=== PATIENT | female | born 1970 | race Caucasian/White ===

== ENCOUNTER 2022-04-28 09:52 | Observation (INO) ==
[2022-04-28] MEDS ORDERED: SODIUM CHLORIDE 0.9% 1000ML 1,000 ML IV SCH (10:15)
--- NOTE | 2022-04-28 10:38 | Emergency Department Note ---
Impression & Plan Atrial fibrillation with rapid ventricular response, SOB (shortness of breath), Dizziness, Chest tightness ED Provider Note NAME: STACIE HODGES AGE: 51 SEX: F : 1970 ARRIVES VIA: Walk-In INFORMANT: [Patient] ED PROVIDER(S): [Star Truong MD] CHIEF COMPLAINT: Cardiac assessment HISTORY OF PRESENT ILLNESS: The patient is a 51-year-old female who states that about 5 hours ago, she felt her heart racing and some pressure across the chest. She would be short of breath with any exertion. At work today, she felt dizzy and lightheaded with some numbness in her lips and fingers with any type of activity. There has been no fever, no cough or congestion. She has no history of A-fib, SVT or a flutter, no coronary history. She states her mom was recently diagnosed with atrial fibrillation though. Of note, the patient does take metoprolol succinate, she took 50 mg this morning. PMHx/PSHx: See Below SOCIAL HISTORY: See Below. PHYSICAL EXAM: GENERAL: Patient is in no acute distress. HEENT: No acute trauma, normocephalic atraumatic, mucous membranes moist, no nasal congestion. NECK: No stridor, no adenopathy, no meningismus, trachea is midline. LUNGS: Clear to auscultation bilaterally, no wheeze, no rhonchi, breath sounds equal. HEART: Tachycardic and irregular, no murmurs. ABDOMEN: Soft, nontender, bowel sounds positive, no peritonitis. EXTREMITIES: No cyanosis, mild bilateral pedal edema, full range of motion of all the joints without pain or difficulty, no signs for acute trauma. NEUROLOGIC: Oriented x 3, no acute motor or sensory deficits, no focal weakness. SKIN: No rash, no jaundice, no diaphoresis. DIFFERENTIAL DIAGNOSIS: A-fib, a flutter, SVT, V. tach, thyroid disorder, electrolyte imbalance, [place], among others. EMERGENCY DEPARTMENT COURSE/PROCEDURES: Prior/Outside records reviewed: None. ECG per my interpretation: Indication was palpitations. The ECG shows atrial fibrillation with a rate of 127. There is no ST elevation, no PVCs. The QTc is 392. Continuous Cardiac Monitoring per my interpretation: An order was placed for continuous cardiac monitoring. The monitor shows a rate of 131 with atrial fibrillation. Critical Care Note: I have personally spent 38 minutes of critical care time in the direct management of this patient. This includes bedside care, interpretation of diagnostic studies, and testing, discussion with consultants, patient, and family members, and other required patient management activities. This 38 minutes is in excess of all separately billable procedures. MEDICAL DECISION MAKING: There is no leukocytosis or concerning anemia. There is a normal platelet count. No renal failure or significant electrolyte abnormality. No concerning liver enzyme elevation. The patient appeared to be in a euthyroid state. ECG showed a rapid atrial fibrillation without obvious acute ischemia. Cardiac enzyme testing x1 was not consistent with acute cardiac injury. COVID test returned negative. Chest x-ray did not show pneumonia, significant cardiomegaly or CHF per my review. On exam, the patient was tachycardic, she seems to be resting comfortably on the stretcher. Patient received IV Lopressor, she was ordered to receive 5 mg every 5 minutes for a total of 3 doses. She was given 25 mg of oral metoprolol tartrate. She was given a 1 L saline bolus. The patient's heart rate is now in the 90s. She remains in A-fib. She remains comfortable. The patient presents with new onset atrial fibrillation. She was short of breath, dizzy and had some chest tightness with her symptoms earlier. She requires a hospital stay and further cardiac work-up. I did speak with case management, the on-call hospitalist was consulted. The patient is aware of all her findings DISPOSITION: Patient's presentation and findings warrant a hospital stay Past Med/Surg History Medical History Diabetes HTN (hypertension) Family History (Updated 04/28/22 @ 13:11 by Cherie Morel PA-C) Other Diabetes Social History Smoking Status: Never smoker Preferred Language: Syriac Feels Safe at Home: Yes Allergies Allergies Allergy/AdvReac Type Severity Reaction Status Date / Time No Known Allergies Allergy Unverified 04/28/22 11:13 Home Meds Home Medications Medication Instructions Recorded Confirmed metoprolol succinate 50 mg 50 mg PO DAILY 04/28/22 04/28/22 tablet,extended release 24 hr multivitamin 1 tab PO QAM 04/28/22 04/28/22 zolpidem 5 mg tablet 5 mg PO HS PRN Sleep 04/28/22 04/28/22 Results & Data (ED) Vital Signs Vital Signs - 24 hr 04/28/22 10:08 04/28/22 10:29 04/28/22 10:53 Temperature 36.3 C L Temperature Source Temporal Artery Scan Pulse Rate 103 H 140 H 123 H Pulse Rate [Right Finger] Pulse Rhythm Regular Pulse Strength Normal Respiratory Rate 22 Respiratory Effort / Characteristics Non-Labored Spontaneous Respiratory Depth Normal Respiratory Pattern Regular Blood Pressure 158/94 H 161/108 H Blood Pressure [Left Calf] Blood Pressure Mean 115 Blood Pressure Mean [Left Calf] Blood Pressure Position Sitting Pulse Oximetry 99 Oxygen Delivery Method Room Air Sepsis Recent Fever Within 48 Hours No Sepsis New/Unexplained Change in Mental Status No Sepsis Action Taken by Nursing No Action Required 04/28/22 11:34 04/28/22 11:34 04/28/22 11:42 Temperature Temperature Source Pulse Rate 112 H 124 H Pulse Rate [Right Finger] 95 H Pulse Rhythm Pulse Strength Respiratory Rate 12 16 Respiratory Effort / Characteristics Non-Labored Respiratory Depth Normal Respiratory Pattern Blood Pressure 134/109 H Blood Pressure [Left Calf] 134/109 H Blood Pressure Mean Blood Pressure Mean [Left Calf] 117 Blood Pressure Position Pulse Oximetry 99 99 Oxygen Delivery Method Room Air Room Air Sepsis Recent Fever Within 48 Hours Sepsis New/Unexplained Change in Mental Status Sepsis Action Taken by Nursing 04/28/22 11:49 04/28/22 11:56 04/28/22 12:35 Temperature Temperature Source Pulse Rate 114 H Pulse Rate [Right Finger] 98 H 94 H Pulse Rhythm Pulse Strength Respiratory Rate 16 16 Respiratory Effort / Characteristics Non-Labored Non-Labored Respiratory Depth Normal Normal Respiratory Pattern Blood Pressure 157/108 H Blood Pressure [Left Calf] 138/97 161/107 H Blood Pressure Mean Blood Pressure Mean [Left Calf] 110 125 Blood Pressure Position Pulse Oximetry 100 98 Oxygen Delivery Method Room Air Room Air Sepsis Recent Fever Within 48 Hours Sepsis New/Unexplained Change in Mental Status Sepsis Action Taken by Custodial Medications Current Medication List: was personally reviewed by me Laboratory Data Attestation: I reviewed the patient's lab results. 04/28/22 11:42 04/28/22 11:42 Lab Results 02/24/23 02/24/23 02/24/23 Range/Units 10:30 10:30 10:30 WBC (4.8-10.8) K/ul RBC (4.20-5.40) M/uL Hgb (12.0-16.0) g/dl Hct (37.0-47.0) % MCV (80.0-100.0) fL MCH (25.0-34.0) pg MCHC (32.0-36.0) g/dL RDW Std Deviation (36.4-46.3) fL RDW Coeff of Kay (11.5-14.5) % Plt Count (130-400) K/uL MPV (9.4-12.4) fL Immature Gran % (Auto) % Neut % (Auto) % Lymph % (Auto) % Treasure % (Auto) % Eos % (Auto) % Baso % (Auto) % Neut # (Auto) (1.40-6.50) K/uL Lymph # (Auto) (1.2-3.4) K/uL Treasure # (Auto) (0.11-0.59) K/uL Eos # (Auto) (0-0.50) K/uL Baso # (Auto) (0-0.2) K/uL Immature Gran # (Auto) (0.01-0.20) K/uL Sodium TNP Potassium TNP Chloride 109 H (98-107) mmol/L Carbon Dioxide 23 (21-32) mmol/L Anion Gap TNP BUN 14 (6-23) mg/dl Creatinine 0.70 (0.6-1.2) mg/dl Est Cr Clr Drug Dosing 145.5 ml/min Est GFR ( Amer) 117.1 ml/min Est GFR (Non-Af Amer) 101.0 ml/min BUN/Creatinine Ratio 20.0 (10-20) Glucose 124 H (70-99(Fasting)) mg/dl Calcium 9.0 (8.5-10.1) mg/dl Magnesium TNP Total Bilirubin 0.8 (0.2-1.0) mg/dl AST TNP ALT 21 (7-52) U/L Alkaline Phosphatase 66 (34-104) U/L Troponin I High Sens 8.0 (0-14) pg/ml Total Protein 7.3 (6.0-8.3) gm/dl Albumin 4.1 (3.4-5.0) gm/dl Globulin 3.2 (2.5-4.0) gm/dl Albumin/Globulin Ratio 1.3 (0.9-2) TSH 1.569 (0.300-4.500) uIu/ml SARS-CoV-2, RNA, NAAT NEGATIVE (NEGATIVE) 04/28/22 04/28/22 Range/Units 11:42 11:42 WBC 7.39 (4.8-10.8) K/ul RBC 4.54 (4.20-5.40) M/uL Hgb 14.1 (12.0-16.0) g/dl Hct 41.5 (37.0-47.0) % MCV 91.4 (80.0-100.0) fL MCH 31.1 (25.0-34.0) pg MCHC 34.0 (32.0-36.0) g/dL RDW Std Deviation 44.9 (36.4-46.3) fL RDW Coeff of Kay 13.3 (11.5-14.5) % Plt Count 201 (130-400) K/uL MPV 11.2 (9.4-12.4) fL Immature Gran % (Auto) 0.4 % Neut % (Auto) 63.9 % Lymph % (Auto) 18.8 % Treasure % (Auto) 10.0 % Eos % (Auto) 5.7 % Baso % (Auto) 1.2 % Neut # (Auto) 4.72 (1.40-6.50) K/uL Lymph # (Auto) 1.39 (1.2-3.4) K/uL Treasure # (Auto) 0.74 H (0.11-0.59) K/uL Eos # (Auto) 0.42 (0-0.50) K/uL Baso # (Auto) 0.09 (0-0.2) K/uL Immature Gran # (Auto) 0.03 (0.01-0.20) K/uL Sodium 139 Potassium 4.5 Chloride (98-107) mmol/L Carbon Dioxide (21-32) mmol/L Anion Gap BUN (6-23) mg/dl Creatinine (0.6-1.2) mg/dl Est Cr Clr Drug Dosing ml/min Est GFR ( Amer) ml/min Est GFR (Non-Af Amer) ml/min BUN/Creatinine Ratio (10-20) Glucose (70-99(Fasting)) mg/dl Calcium (8.5-10.1) mg/dl Magnesium 1.7 Total Bilirubin (0.2-1.0) mg/dl AST 22 ALT (7-52) U/L Alkaline Phosphatase (34-104) U/L Troponin I High Sens (0-14) pg/ml Total Protein (6.0-8.3) gm/dl Albumin (3.4-5.0) gm/dl Globulin (2.5-4.0) gm/dl Albumin/Globulin Ratio (0.9-2) TSH (0.300-4.500) uIu/ml SARS-CoV-2, RNA, NAAT (NEGATIVE) Administered Medications Metoprolol Tartrate (Metoprolol Tartrate 1 Mg/Ml Vial) 5 mg IV Q5M PRN PRN Reason: Tachycardia Stop: 05/28/22 10:30 Last Admin: 04/28/22 11:56 Dose: 5 mg Documented By: Admin: 04/28/22 11:42 Dose: 5 mg Documented By: Admin: 04/28/22 10:53 Dose: 5 mg Documented By: MARELY Discontinued Medications Sodium Chloride (Nss 1000ml) 1,000 mls @ 999 mls/hr IV .Q1H1M GRAYSON Stop: 04/28/22 11:15 Last Infusion: 04/28/22 12:07 Dose: 0 mls/hr Documented By: Admin: 04/28/22 10:54 Dose: 999 mls/hr Documented By: MARELY Metoprolol Tartrate (Metoprolol Tartrate 25 Mg Tab) 25 mg PO NOW STA Stop: 04/28/22 11:41 Last Admin: 04/28/22 11:47 Dose: 25 mg Documented By: ARIELLA Imaging Data Radiologist's Impression: Chest X-Ray 04/28/22 10:15 XR chest 1V portable CLINICAL HISTORY: weakness COMPARISON STUDY: No previous studies for comparison. FINDINGS: Lung volumes are normal. Lungs are clear. There is no pneumothorax or pleural effusion. There is mild cardiomegaly. Mediastinal contours are normal. There is no evidence for pulmonary edema. IMPRESSION: No acute cardiopulmonary findings. Mild cardiomegaly. ACT 112: Negative or not required by law. Electronically signed by: Mynor Serrano M.D. 04/28/2022 11:04 AM Discharge Plan Visit Data Chief Complaint: Cardiac Assessment Stated Complaint: RAPID HEARTBEAT, TINGLING FINGERS AND LIPS ED Provider: Star Truong Discharge Problem: Atrial fibrillation with rapid ventricular response, SOB (shortness of breath), Dizziness, Chest tightness Patient Disposition: Admitted As Inpatient Condition: Fair Forms Stand Alone Forms: [facility] Prescriptions Prescriptions: No Action multivitamin Tablet 1 tab PO QAM metoprolol succinate 50 mg Tablet Extended Release 24 Hr 50 mg PO DAILY zolpidem 5 mg tablet 5 mg PO HS PRN (Reason: Sleep) Referrals Referrals: PCP,NO [Primary Care Provider] -
[2022-04-28] MEDS: METOPROLOL TARTRATE 1 MG/ML VIAL IV PRN ×3 (10:53→11:56)
--- NOTE | 2022-04-28 11:05 | XRay Report ---
XR chest 1V portable CLINICAL HISTORY: weakness COMPARISON STUDY: No previous studies for comparison. FINDINGS: Lung volumes are normal. Lungs are clear. There is no pneumothorax or pleural effusion. The re is mild cardiomegaly. Mediastinal contours are normal. There is no evidence for pulmonary edema. IMPRESSION: No acute cardiopulmonary findings. Mild cardiomegaly. ACT 112: Negative or not required by law. Electronically signed by: Mynor Serrano M.D. 04/28/2022 11:04 AM
[2022-04-28 11:26] LABS: Alanine Aminotransferase 21 U/L (7-52); Albumin Globulin Ratio 1.3 (0.9-2); Albumin Level 4.1 gm/dl (3.4-5.0); Alkaline Phosphatase 66 U/L (34-104); Bilirubin,Total 0.8 mg/dl (0.2-1.0); Blood Urea Nitrogen 14 mg/dl (6-23); Carbon Dioxide 23 mmol/L (21-32); Chloride 109 mmol/L (98-107); Creatinine Clr Calc Pharmacy 145.5 ml/min; Est GFR (African American) 117.1 ml/min; Globulin 3.2 gm/dl (2.5-4.0); Glucose 124 mg/dl (70-99(Fasting)); Total Protein 7.3 gm/dl (6.0-8.3)
[2022-04-28] MEDS ORDERED: METOPROLOL TARTRATE 25 MG TAB PO STA (11:40)
--- NOTE | 2022-04-28 11:40 | Electrocardiogram Report ---
Test Reason : Blood Pressure : / mmHG Vent. Rate : 127 BPM Atrial Rate : 138 BPM P-R Int : 000 ms QRS Dur : 080 ms QT Int : 270 ms P-R-T Axes : 000 -01 026 degrees QTc Int : 392 ms Poor data quality, interpretation may be adversely affected Atrial fibrillation with rapid ventricular response Abnormal ECG No previous ECGs available Confirmed by Huang Mina ([id number]) on 04/28/2022 11:40:34 AM Referred By: REFERRED SELF Confirmed By:Juan Mina
[2022-04-28 12:33] LABS: Basophils # (auto) 0.09 K/uL (0-0.2); Basophils % (auto) 1.2 %; Eosinophils # (auto) 0.42 K/uL (0-0.50); Eosinophils % (auto) 5.7 %; Hematocrit (blood only) 41.5 % (37.0-47.0); Hemoglobin 14.1 g/dl (12.0-16.0); Immature Granulocytes # (auto) 0.03 K/uL (0.01-0.20); Immature Granulocytes % (auto) 0.4 %; Lymphocytes # (auto) 1.39 K/uL (1.2-3.4); Lymphocytes % (auto) 18.8 %; Mean Corpuscular Hemoglobin 31.1 pg (25.0-34.0); Mean Corpuscular Volume 91.4 fL (80.0-100.0); Mean Platelet Volume 11.2 fL (9.4-12.4); Monocytes # (auto) 0.74 K/uL (0.11-0.59); Neutrophils # (auto) 4.72 K/uL (1.40-6.50); Neutrophils % (auto) 63.9 %; Platelet Count 201 K/uL (130-400); RDW Coefficient of Variation 13.3 % (11.5-14.5); RDW Standard Deviation 44.9 fL (36.4-46.3); Red Blood Count 4.54 M/uL (4.20-5.40); White Blood Count 7.39 K/ul (4.8-10.8)
[2022-04-28 12:37] LABS: Magnesium 1.7 mg/dl (1.7-2.4); Potassium 4.5 mmol/L (3.5-5.1)
--- NOTE | 2022-04-28 13:10 | History & Physical Report ---
Date of Service April 28, 2022 Assessment & Plan (1) Atrial fibrillation with rapid ventricular response: Plan: Patient is 51-year-old female with PMH HTN, diet controlled DM II, obesity s/p gastric bypass, venous stasis presented to ER with c/o palpitations today with associated SOB, dizziness In ER found to be in atrial fibrillation RVR rate in 120's and was given 5mg IV metoprolol tartrate and oral 25mg metoprolol tartrate. EKG Atrial fibrillation with rate of 127. Repeat EKG at 1331 normal sinus rhythm, rate 68, no acute ST changes per my interpretation CXR: Mild cardiomegaly, no acute infiltrate per my interpretation During ER course converted to sinus rhythm with reported improvement of symptoms. TSH WNL. No significant electrolyte abnormality. Initial high-sensitivity troponin negative [id number]: 3 Trend troponin Start IV heparin Echo Continue home metoprolol succinate Cardiology consult CBC, BMP in a.m. (2) HTN (hypertension): Plan: Hypertensive in ER Continue metoprolol succinate Start lisinopril 5 mg daily (3) Diabetes mellitus, type II: Plan: Diet controlled Diabetic diet A1c in a.m. (4) Obesity: Plan: S/p gastric bypass BMI: 45 DVT Prophylaxis On IV Heparin Full Code as per discussion with pt Follows with Dr Velázquez in [place] for routine care Pt was seen and care coordinated with Dr Jefferson. See addendum I spent a total of 60 minutes reviewing notes, outpatient records, labs, medication, coordinating, documenting and providing care for this patient excluding time spent in the performance of separately billed services. History of Present Illness Chief Complaint: heart racing Primary Care Provider: NO PCP Patient is 51-year-old female with PMH HTN, diet controlled DM II, obesity s/p gastric bypass, venous stasis presented to ER with c/o palpitations. Woke out of sleep at 5:30AM today with palpitations, SOB. [place] dizzy with ambulation. 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 She said she had some mild chest discomfort which has since resolved. Yesterday had 2 cups tea and 1 [employer] energy drink. Usually drinks tea daily and will have energy drink twice weekly. Denies ETOH use. Denies recent illness. Two weeks ago had similar episode of palpitations, SOB awakening out of sleep iwth worsening with exertion. symptoms lasted a few hours and self resolved. Denies fever/chills, diaphoresis, N/V/D/C, VELAZOC, syncope, vision changes, neck pain, orthopnea, cough, sore throat, choking, otalgia, rhinorrhea, abdominal pain, paresthesias, weakness, extremity weakness, extremity edema, rashes, urinary symptoms. In ER found to be in atrial fibrillation RVR rate in 120's and was given 5mg IV metoprolol tartrate and oral 25mg metoprolol tartrate. During ER course converted to sinus rhythm with reported improvement of symptoms. Allergies Allergy/AdvReac Type Severity Reaction Status Date / Time No Known Allergies Allergy Unverified 04/28/22 11:13 Home Medications Medication Instructions Recorded Confirmed Type metoprolol succinate 50 mg 50 mg PO DAILY 04/28/22 04/28/22 History tablet,extended release 24 hr multivitamin 1 tab PO QAM 04/28/22 04/28/22 History zolpidem 5 mg tablet 5 mg PO HS PRN Sleep 04/28/22 04/28/22 History Past Med/Surg History Medical History (Updated 04/28/22 @ 15:58 by Cherie Morel PA-C) Diabetes Diabetes mellitus, type II HTN (hypertension) Obesity Venous stasis Surgical History (Updated 04/28/22 @ 13:33 by Cherie Morel PA-C) History of History of gastric bypass Family History (Updated 04/28/22 @ 13:27 by Cherie Morel PA-C) Mother A-fib Other Diabetes Social History (Updated 04/28/22 @ 13:27 by Cherie Morel PA-C) Smoking Status: Never smoker Second Hand Exposure: No; Do You Dip or Chew Tobacco: No; Tobacco Cessation Education Requested by Patient: No Hx Alcohol Use: Yes Alcohol Intake Frequency: Monthly or Less Hx Substance Use: No Preferred Language: Tanzanian Communication Ability: Effective Scratch Brusher Required: No Beliefs That Will Affect Care: None Current Living Situation: Family Other Information That Helps Us Care for You: No Feels Safe at Home: Yes Safety Concerns: Feels Safe At This Time Assistive Devices: None and Denture - Upper Assistive Devices Comment: partial upper denture Review of Systems Review of Systems: All systems reviewed & are unremarkable except as noted in HPI & below Physical Exam Physical Exam: General: no distress, obese Head: normocephalic, atraumatic Eyes: conjunctiva non-injected, anicteric ENT: normal inspection external ears, nose, mucous membranes moist Neck: supple, trachea midline, non-tender Lungs: clear, no respiratory distress, no wheezing/rhonchi/rales CV: RRR, rate 68, no murmur Abd: normal BS, soft, non-tender Ext: no cyanosis, no calf tenderness, +venous stasis skin changes BLE, +large legs without noted pitting edema Neuro: A&O x 3, no focal deficits noted, normal affect Skin: warm, dry Results & Data Results & Data ([facility]) Vital Signs (Past 12 Hours) Vital Signs Temp Pulse Pulse Resp BP BP Pulse Ox 04/28/22 12:35 94 H 16 161/107 H 98 04/28/22 11:56 114 H 157/108 H 04/28/22 11:49 98 H 16 138/97 100 04/28/22 11:42 124 H 134/109 H 04/28/22 11:34 112 H 16 99 04/28/22 11:34 95 H 12 134/109 H 99 04/28/22 10:53 123 H 161/108 H 04/28/22 10:29 140 H 04/28/22 10:08 36.3 C L 103 H 22 158/94 H 99 O2 Del Method 04/28/22 12:35 Room Air 04/28/22 11:56 04/28/22 11:49 Room Air 04/28/22 11:42 04/28/22 11:34 Room Air 04/28/22 11:34 Room Air 04/28/22 10:53 04/28/22 10:29 04/28/22 10:08 Room Air Laboratory Results Short CBC 04/28/22 Range/Units 11:42 WBC 7.39 (4.8-10.8) K/ul Hgb 14.1 (12.0-16.0) g/dl Hct 41.5 (37.0-47.0) % Plt Count 201 (130-400) K/uL BMP 04/28/22 04/28/22 10:30 11:42 Sodium TNP 139 Potassium TNP 4.5 Chloride 109 H Carbon Dioxide 23 BUN 14 Creatinine 0.70 Glucose 124 H Calcium 9.0 Liver Function 04/28/22 04/28/22 Range/Units 10:30 11:42 Total Bilirubin 0.8 (0.2-1.0) mg/dl AST TNP 22 ALT 21 (7-52) U/L Alkaline Phosphatase 66 (34-104) U/L Albumin 4.1 (3.4-5.0) gm/dl Diagnostic Findings Chest X-Ray 04/28/22 10:15 XR chest 1V portable CLINICAL HISTORY: weakness COMPARISON STUDY: No previous studies for comparison. FINDINGS: Lung volumes are normal. Lungs are clear. There is no pneumothorax or pleural effusion. There is mild cardiomegaly. Mediastinal contours are normal. There is no evidence for pulmonary edema. IMPRESSION: No acute cardiopulmonary findings. Mild cardiomegaly. ACT 112: Negative or not required by law. Electronically signed by: Mynor Serrano M.D. 04/28/2022 11:04 AM Supervising Physician Co-Signing Physician Notes Date of Service: April 28, 2022 Patient seen and examined. 51-year-old woman with hypertension, reported diabetes that is diet-controlled who presents with palpitations and shortness of breath started this morning. Reported similar episode few weeks ago. Reports mother had A-fib. Exam notable for obese woman in no obvious distress, currently in sinus rhythm, blood pressure of 180/100, pedal edema with chronic stasis changes. Labs grossly unremarkable. Chest x-ray noted mild cardiomegaly. New onset A-fib. Hypertension. Based on patient's CHADVASC of 3, start heparin drip. Will likely do NOAC on dc Continue metoprolol succinate. Start lisinopril Check hemoglobin A1c. panel monitor Cardiology consult Other plans as detailed by Cherie Morel PA-C
[2022-04-28] MEDS ORDERED: Heparin IV Adult Wt-Based Standard *NO* Bolus Protocol IV SCH (13:43)
--- NOTE | 2022-04-28 14:17 | Communication Note ---
Date of Service: April 28, 2022 Patient seen and examined. 51-year-old woman with hypertension, reported diabetes that is diet-controlled who presents with palpitations and shortness of breath started this morning. Reported similar episode few weeks ago. Reports mother had A-fib. Exam notable for obese woman in no obvious distress, currently in sinus rhythm, blood pressure of 180/100, pedal edema with chronic stasis changes. Labs grossly unremarkable. Chest x-ray noted mild cardiomegaly. New onset A-fib. Hypertension. Based on patient's CHADVASC of 3, start heparin drip. Will likely do NOAC on dc Continue metoprolol succinate. Start lisinopril Check hemoglobin A1c. monitor tech Cardiology consult Other plans as detailed by Cherie Morel PA-C
[2022-04-28] MEDS ORDERED: lisinopril 5 MG TAB PO ONE (14:30)
[2022-04-28] MEDS ORDERED: HEPARIN 25000 UNIT/500 ML D5W IV ONE (14:48)
[2022-04-28 14:58] LABS: INR 1.2 (0.9-1.1); Partial Thromboplastin Time 27.5 Seconds (21.0-31.0); Prothrombin Time 12.3 Seconds (9.0-12.0)
[2022-04-28] MEDS ORDERED: POLYETHYLENE (MIRALAX) 17 GM PACK PO PRN (16:03)
[2022-04-28] MEDS ORDERED: ACETAMINOPHEN 325 MG TAB PO PRN (16:03)
[2022-04-28] MEDS ORDERED: ONDANSETRON INJ 2 MG/ML 2 ML VIAL IV PRN (16:03)
--- NOTE | 2022-04-28 16:23 | Electrocardiogram Report ---
Test Reason : Blood Pressure : / mmHG Vent. Rate : 068 BPM Atrial Rate : 068 BPM P-R Int : 146 ms QRS Dur : 088 ms QT Int : 408 ms P-R-T Axes : 011 001 031 degrees QTc Int : 433 ms Normal sinus rhythm Normal ECG When compared with ECG of 28-APR-2022 10:23, Sinus rhythm has replaced Atrial fibrillation Vent. rate has decreased BY 59 BPM Confirmed by Huang Mina ([id number]) on 04/28/2022 4:22:42 PM Referred By: REFERRED SELF Confirmed By:Juan Mina
[2022-04-28] MEDS: HEPARIN SODIUM/DEXTROSE 25,000 UNITS/500 ML BAG IV SCH (16:48)
[2022-04-28] MEDS ORDERED: hydrALAZINE HCL 20 MG/ML VIAL IV STA (17:29)
[2022-04-28 21:29] LABS: Partial Thromboplastin Ratio 1.3; Partial Thromboplastin Time 35.1 Seconds (21.0-31.0)
[2022-04-28] MEDS ORDERED: ZOLPIDEM TARTRATE 5 MG TAB PO PRN (22:50)
[2022-04-29] MEDS ORDERED: HEPARIN SOD (PORCINE) 1000 UNIT/ML 10 ML VIAL IV ONE (00:30)
[2022-04-29] MEDS: HEPARIN SODIUM/DEXTROSE 25,000 UNITS/500 ML BAG IV SCH ×2 (03:45→07:11)
[2022-04-29 04:53] LABS: Hematocrit (blood only) 37.8 % (37.0-47.0); Hemoglobin 12.9 g/dl (12.0-16.0); Mean Corpuscular Hemoglobin 31.2 pg (25.0-34.0); Mean Corpuscular Hgb Conc 34.1 g/dL (32.0-36.0); Mean Corpuscular Volume 91.5 fL (80.0-100.0); Mean Platelet Volume 10.9 fL (9.4-12.4); Platelet Count 164 K/uL (130-400); RDW Coefficient of Variation 13.3 % (11.5-14.5); RDW Standard Deviation 44.8 fL (36.4-46.3); Red Blood Count 4.13 M/uL (4.20-5.40); White Blood Count 6.43 K/ul (4.8-10.8)
[2022-04-29 05:12] LABS: BUN Creatinine Ratio 20.9 (10-20); Calcium 8.2 mg/dl (8.5-10.1); Creatinine Clr Calc Pharmacy 151.6 ml/min; Est GFR (African American) 118.8 ml/min; Est GFR (Non-African American) 102.5 ml/min; Potassium 3.8 mmol/L (3.5-5.1)
[2022-04-29 05:50] LABS: Partial Thromboplastin Ratio 3.1
[2022-04-29 05:57] LABS: Partial Thromboplastin Time 86.1 Seconds (21.0-31.0)
[2022-04-29 07:59] LABS: Estimated Average Glucose 103 mg/dl; Hemoglobin A1C 5.2 % (4.5-5.6)
[2022-04-29] MEDS ORDERED: POTASSIUM CHLORIDE CRTAB 20 MEQ TABCR PO ONE (08:05)
[2022-04-29] MEDS ORDERED: METOPROLOL SUCC 50MG EXT REL TAB PO SCH (09:00)
[2022-04-29] MEDS ORDERED: lisinopril 5 MG TAB PO SCH (09:00)
--- NOTE | 2022-04-29 11:39 | Cardiology Consultation ---
Date of Consultation April 29, 2022 Assessment & Plan (1) Atrial fibrillation with rapid ventricular response: (2) Obesity: (3) Diabetes mellitus, type II: (4) Venous stasis: Plan The patient converted spontaneously to normal sinus rhythm. I would continue the metoprolol. She will need to be discharged on anticoagulation and I would recommend Eliquis 5 mg twice daily which I have started and discontinued her heparin. I do not believe any additional inpatient cardiac testing is indicated. If the patient remains medically stable I think she can be discharged per the hospitalist service. History of Present Illness Attending Physician: Nazario Hickey MD History of Present Illness This is a pleasant 51-year-old female with a history of obesity, diabetes and hypertension who has undergone previous gastric bypass surgery. She was in her usual state of health until yesterday morning she woke up and felt lightheaded and dizzy. 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 She saw the school nurse who took her vital signs and noted that she had a fast irregular rhythm and referred her to the emergency department where she has been admitted. In the emergency department she was in atrial fibrillation with RVR but after medications were given she converted spontaneously to normal sinus rhythm where she has remained. Cardiac troponins are negative. EKG shows no acute changes. She has no complaints this morning. Echocardiogram completed this admission showed normal LV function and no significant valvular pathology. Allergies Allergy/AdvReac Type Severity Reaction Status Date / Time No Known Allergies Allergy Unverified 04/28/22 11:13 Home Medications Medication Instructions Recorded Confirmed Type metoprolol succinate 50 mg 50 mg PO DAILY 04/28/22 04/28/22 History tablet,extended release 24 hr multivitamin 1 tab PO QAM 04/28/22 04/28/22 History zolpidem 5 mg tablet 5 mg PO HS PRN Sleep 04/28/22 04/28/22 History Patient History Medical History Diabetes Diabetes mellitus, type II HTN (hypertension) Obesity Venous stasis Surgical History History of History of gastric bypass Family History Mother A-fib Other Diabetes Social History Smoking Status: Never smoker Second Hand Exposure: No; Do You Dip or Chew Tobacco: No; Tobacco Cessation Education Requested by Patient: No Hx Alcohol Use: Yes Alcohol Intake Frequency: Monthly or Less Hx Substance Use: No Preferred Language: Amharic Communication Ability: Effective Pattern Hand Required: No Beliefs That Will Affect Care: None Current Living Situation: Family Other Information That Helps Us Care for You: No Feels Safe at Home: Yes Safety Concerns: Feels Safe At This Time Assistive Devices: None and Denture - Upper Assistive Devices Comment: partial upper denture Review of Systems Review of Systems: Review of Systems: See HPI for pertinent positives. All other 10 point review of systems are negative. Physical Exam Physical Exam: General: no acute distress and stated age Head: normocephalic, no masses, lesions, tenderness or abnormalities Eyes: conjunctiva are pink and non-injected, sclera clear Neck: supple, no adenopathy, no bruits, normal jugular venous pulse, no hepatojugular reflux Chest: normal shape and normal respiratory effort Lungs: clear to auscultation and percussion Cardiac Exam: - regular rate & rhythm, no murmurs gallops or rubs - normal S1, normal S2 Pulses: 2(+) throughout Abdomen: abdomen soft, non-tender, no abnormal masses and no hepatosplenomegaly Musculoskeletal: no gait disturbance, no joint inflammation, no deforming arthritis Extremities: no edema and no cyanosis Neuro: grossly normal exam Results & Data ([facility]) Vital Signs (Past 12 Hours) Vital Signs Temp Pulse Pulse Resp BP Pulse Ox O2 Del Method 04/29/22 09:06 66 04/29/22 07:47 36.6 C 66 18 159/97 H 95 Room Air 04/29/22 03:48 36.8 C 69 18 133/81 97 Room Air 04/28/22 23:38 68 Laboratory Results Laboratory Results - last 24 hr 04/28/22 04/28/22 04/28/22 10:30 11:42 11:42 WBC 7.39 RBC 4.54 Hgb 14.1 Hct 41.5 MCV 91.4 MCH 31.1 MCHC 34.0 RDW Std Deviation 44.9 RDW Coeff of Kay 13.3 Plt Count 201 MPV 11.2 Immature Gran % (Auto) 0.4 Neut % (Auto) 63.9 Lymph % (Auto) 18.8 [place] % (Auto) 10.0 Eos % (Auto) 5.7 Baso % (Auto) 1.2 Neut # (Auto) 4.72 Lymph # (Auto) 1.39 [place] # (Auto) 0.74 H Eos # (Auto) 0.42 Baso # (Auto) 0.09 Immature Gran # (Auto) 0.03 PT 12.3 H INR 1.2 H APTT 27.5 PTT Ratio 1.0 Sodium 139 Potassium 4.5 Chloride Carbon Dioxide Anion Gap BUN Creatinine Est Cr Clr Drug Dosing Est GFR ( Amer) Est GFR (Non-Af Amer) BUN/Creatinine Ratio Glucose Estimat Average Glucose Hemoglobin A1c Calcium Magnesium 1.7 AST 22 Troponin I High Sens 04/28/22 04/28/22 04/28/22 14:18 20:43 20:43 WBC RBC Hgb Hct MCV MCH MCHC RDW Std Deviation RDW Coeff of Kay Plt Count MPV Immature Gran % (Auto) Neut % (Auto) Lymph % (Auto) [place] % (Auto) Eos % (Auto) Baso % (Auto) Neut # (Auto) Lymph # (Auto) [place] # (Auto) Eos # (Auto) Baso # (Auto) Immature Gran # (Auto) PT INR APTT 35.1 H PTT Ratio 1.3 Sodium Potassium Chloride Carbon Dioxide Anion Gap BUN Creatinine Est Cr Clr Drug Dosing Est GFR ( Amer) Est GFR (Non-Af Amer) BUN/Creatinine Ratio Glucose Estimat Average Glucose Hemoglobin A1c Calcium Magnesium AST Troponin I High Sens 8.8 8.6 04/29/22 04/29/22 04/29/22 04:22 04:22 04:22 WBC 6.43 RBC 4.13 L Hgb 12.9 Hct 37.8 MCV 91.5 MCH 31.2 MCHC 34.1 RDW Std Deviation 44.8 RDW Coeff of Kay 13.3 Plt Count 164 MPV 10.9 Immature Gran % (Auto) Neut % (Auto) Lymph % (Auto) [place] % (Auto) Eos % (Auto) Baso % (Auto) Neut # (Auto) Lymph # (Auto) [place] # (Auto) Eos # (Auto) Baso # (Auto) Immature Gran # (Auto) PT INR APTT PTT Ratio Sodium 138 Potassium 3.8 Chloride 109 H Carbon Dioxide 25 Anion Gap 4 BUN 14 Creatinine 0.67 Est Cr Clr Drug Dosing 151.6 Est GFR ( Amer) 118.8 Est GFR (Non-Af Amer) 102.5 BUN/Creatinine Ratio 20.9 H Glucose 103 H Estimat Average Glucose 103 Hemoglobin A1c 5.2 Calcium 8.2 L Magnesium AST Troponin I High Sens 04/29/22 04:22 WBC RBC Hgb Hct MCV MCH MCHC RDW Std Deviation RDW Coeff of Kay Plt Count MPV Immature Gran % (Auto) Neut % (Auto) Lymph % (Auto) [place] % (Auto) Eos % (Auto) Baso % (Auto) Neut # (Auto) Lymph # (Auto) [place] # (Auto) Eos # (Auto) Baso # (Auto) Immature Gran # (Auto) PT INR APTT 86.1 H* PTT Ratio 3.1 Sodium Potassium Chloride Carbon Dioxide Anion Gap BUN Creatinine Est Cr Clr Drug Dosing Est GFR ( Amer) Est GFR (Non-Af Amer) BUN/Creatinine Ratio Glucose Estimat Average Glucose Hemoglobin A1c Calcium Magnesium AST Troponin I High Sens Medications Administered Current Inpatient Medications Acetaminophen (Acetaminophen 325 Mg Tab) 650 mg PO Q4H PRN PRN Reason: Pain or Fever Stop: 05/28/22 16:02 Last Admin: 04/29/22 08:00 Dose: 650 mg Apixaban (Apixaban 5 Mg Tablet) 5 mg PO BID [facility] Stop: 05/29/22 11:44 Lisinopril (Lisinopril 5 Mg Tab) 5 mg PO QAM [facility] Stop: 05/29/22 08:59 Last Admin: 04/29/22 08:01 Dose: 5 mg Metoprolol Succinate (Metoprolol Succ 50mg Ext Rel Tab) 50 mg PO DAILY [facility] Stop: 05/29/22 08:59 Last Admin: 04/29/22 08:01 Dose: 50 mg Ondansetron HCl (Ondansetron Inj 2 Mg/Ml 2 Ml Vial) 4 mg IV Q6H PRN PRN Reason: Nausea Stop: 05/28/22 16:02 Polyethylene Glycol (Polyethylene (Miralax) 17 Gm Pack) 17 gm PO DAILY PRN PRN Reason: Constipation Stop: 05/28/22 16:02 Zolpidem Tartrate (Zolpidem Tartrate 5 Mg Tab) 5 mg PO HS PRN PRN Reason: Sleep Stop: 05/28/22 22:49 Last Admin: 04/29/22 00:30 Dose: 5 mg
[2022-04-29] MEDS ORDERED: APIXABAN 5 MG TABLET PO SCH (12:00)
[2022-04-29] MEDS ORDERED: lisinopril 5 MG TAB PO ONE (12:00)
--- NOTE | 2022-04-29 14:06 | Hospitalist Progress Note ---
Date of Service April 29, 2022 Assessment & Plan (1) Atrial fibrillation with rapid ventricular response: Plan: Patient is a 51 yr female with H/O HTN, diet controlled DM II, obesity s/p gastric bypass, venous stasis presented to ER with c/o palpitations today with associated SOB, dizziness A-fib RVR Spontaneously converted to sinus CXR: No acute cardiopulmonary findings. Mild cardiomegaly. ECHO: Moderate concentric LVH. Left ventricle systolic function is normal. EF 60 to 65%. Right ventricle systolic function is normal. Left atrium is mildly dilated. Right atrial size is normal. Trace mitral and tricuspid regurgitation TSH WNL Troponin negative [id number]: 3 IV heparin>> transition to Eliquis Continue metoprolol for rate control Appreciate cardiology input Advised to follow-up with cardiology upon discharge (2) HTN (hypertension): Plan: Blood pressure uncontrolled Continue metoprolol succinate Started lisinopril 10 mg daily (3) Diabetes mellitus, type II: Plan: Diet controlled HbA1c 5.2 (4) Obesity: Plan: S/p gastric bypass BMI: 45 DVT Px Eliquis Code Status Full Code Admission and Anticipated Discharge Date Admission Date: April 28, 2022 Subjective Patient is seen and examined at bedside States having headache earlier today which resolved after consumption of coffee Discussed with cardiology today Denies any chest pain, palpitations, dizziness, nausea, abdominal pain, shortness of breath No other complaints Review of Systems Review of Systems: All systems reviewed & are unremarkable except as noted in Subjective Physical Exam Physical Exam: Physical Exam: Vitals signs as noted above General Appearance:Morbidly Obese, no apparent distress Head: normocephalic, Atraumatic Eyes: normal inspection, EOMI Neck: supple, Trachea midline Respiratory/Chest: Normal breath sounds, CTA, No accessory muscle use Cardiovascular: S1, S2, No murmur Abdomen/GI:Soft, Non tender, Bowel sounds present Extremities/Musculoskeletal:normal inspection, chronic venous stasis changes, trace pedal edema Neurologic/Psych:AAOX3, grossly no focal neurological deficits Skin: normal color, warm Results & Data Results & Data ([facility]) Vital Signs (Past 12 Hours) Vital Signs Temp Pulse Pulse Resp BP Pulse Ox O2 Del Method 04/29/22 11:48 36.9 C 64 20 161/94 H 97 Room Air 04/29/22 09:06 66 02/25/23 07:47 36.6 C 66 18 159/97 H 95 Room Air 04/29/22 03:48 36.8 C 69 18 133/81 97 Room Air Laboratory Results Short CBC 04/29/22 Range/Units 04:22 WBC 6.43 (4.8-10.8) K/ul Hgb 12.9 (12.0-16.0) g/dl Hct 37.8 (37.0-47.0) % Plt Count 164 (130-400) K/uL BMP 04/29/22 04:22 Sodium 138 Potassium 3.8 Chloride 109 H Carbon Dioxide 25 BUN 14 Creatinine 0.67 Glucose 103 H Calcium 8.2 L
--- NOTE | 2022-04-29 14:21 | Discharge Summary ---
Date of Service April 29, 2022 Admission HPI Per Admitting Provider Patient is 51-year-old female with PMH HTN, diet controlled DM II, obesity s/p gastric bypass, venous stasis presented to ER with c/o palpitations. Woke out of sleep at 5:30AM today with palpitations, SOB. [place] dizzy with ambulation. 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 She said she had some mild chest discomfort which has since resolved. Yesterday had 2 cups tea and 1 [employer] energy drink. Usually drinks tea daily and will have energy drink twice weekly. Denies ETOH use. Denies recent illness. Two weeks ago had similar episode of palpitations, SOB awakening out of sleep iwth worsening with exertion. symptoms lasted a few hours and self resolved. Denies fever/chills, diaphoresis, N/V/D/C, [place], syncope, vision changes, neck pain, orthopnea, cough, sore throat, choking, otalgia, rhinorrhea, abdominal pain, paresthesias, weakness, extremity weakness, extremity edema, rashes, urinary s ymptoms. In ER found to be in atrial fibrillation RVR rate in 120's and was given 5mg IV metoprolol tartrate and oral 25mg metoprolol tartrate. During ER course converted to sinus rhythm with reported improvement of symptoms. Admission Exam Per Admitting Provider Physical Exam Physical Exam: General: no distress, obese Head: normocephalic, atraumatic Eyes: conjunctiva non-injected, anicteric ENT: normal inspection external ears, nose, mucous membranes moist Neck: supple, trachea midline, non-tender Lungs: clear, no respiratory distress, no wheezing/rhonchi/rales CV: RRR, rate 68, no murmur Abd: normal BS, soft, non-tender Ext: no cyanosis, no calf tenderness, +venous stasis skin changes BLE, +large legs without noted pitting edema Neuro: A&O x 3, no focal deficits noted, normal affect Skin: warm, dry Principal Diagnosis Atrial fibrillation with rapid ventricular response Hypertension Discharge Data Allergies Allergy/AdvReac Type Severity Reaction Status Date / Time No Known Allergies Allergy Unverified 04/28/22 11:13 Consultations 04/28/22 13:08 ED Decision to Admit Stat 04/28/22 16:03 Consult Cardiology Routine Procedures Performed Laboratory Results WBC 6.43 K/ul (4.8-10.8) 04/29/22 04:22 RBC 4.13 M/uL (4.20-5.40) L 04/29/22 04:22 Hgb 12.9 g/dl (12.0-16.0) 04/29/22 04:22 Hct 37.8 % (37.0-47.0) 04/29/22 04:22 MCV 91.5 fL (80.0-100.0) 04/29/22 04:22 MCH 31.2 pg (25.0-34.0) 04/29/22 04:22 MCHC 34.1 g/dL (32.0-36.0) 04/29/22 04:22 RDW Std Deviation 44.8 fL (36.4-46.3) 04/29/22 04:22 RDW Coeff of Kay 13.3 % (11.5-14.5) 04/29/22 04:22 Plt Count 164 K/uL (130-400) 04/29/22 04:22 MPV 10.9 fL (9.4-12.4) 04/29/22 04:22 Immature Gran % (Auto) 0.4 % 04/28/22 11:42 Neut % (Auto) 63.9 % 04/28/22 11:42 Lymph % (Auto) 18.8 % 04/28/22 11:42 [place] % (Auto) 10.0 % 04/28/22 11:42 Eos % (Auto) 5.7 % 04/28/22 11:42 Baso % (Auto) 1.2 % 04/28/22 11:42 Neut # (Auto) 4.72 K/uL (1.40-6.50) 04/28/22 11:42 Lymph # (Auto) 1.39 K/uL (1.2-3.4) 04/28/22 11:42 [place] # (Auto) 0.74 K/uL (0.11-0.59) H 04/28/22 11:42 Eos # (Auto) 0.42 K/uL (0-0.50) 04/28/22 11:42 Baso # (Auto) 0.09 K/uL (0-0.2) 04/28/22 11:42 Immature Gran # (Auto) 0.03 K/uL (0.01-0.20) 04/28/22 11:42 PT 12.3 Seconds (9.0-12.0) H 04/28/22 10:30 INR 1.2 (0.9-1.1) H 04/28/22 10:30 APTT 86.1 Seconds (21.0-31.0) H* 04/29/22 04:22 PTT Ratio 3.1 04/29/22 04:22 Sodium 138 mmol/L (136-145) 04/29/22 04:22 Potassium 3.8 mmol/L (3.5-5.1) 04/29/22 04:22 Chloride 109 mmol/L (98-107) H 04/29/22 04:22 Carbon Dioxide 25 mmol/L (21-32) 04/29/22 04:22 Anion Gap 4 (3-11) 04/29/22 04:22 BUN 14 mg/dl (6-23) 04/29/22 04:22 Creatinine 0.67 mg/dl (0.6-1.2) 04/29/22 04:22 Est Cr Clr Drug Dosing 151.6 ml/min 04/29/22 04:22 Est GFR ( Amer) 118.8 ml/min 04/29/22 04:22 Est GFR (Non-Af Amer) 102.5 ml/min 04/29/22 04:22 BUN/Creatinine Ratio 20.9 (10-20) H 04/29/22 04:22 Glucose 103 mg/dl (70-99(Fasting)) H 04/29/22 04:22 Estimat Average Glucose 103 mg/dl 04/29/22 04:22 Hemoglobin A1c 5.2 % (4.5-5.6) 04/29/22 04:22 Calcium 8.2 mg/dl (8.5-10.1) L 04/29/22 04:22 Magnesium 1.7 mg/dl (1.7-2.4) 04/28/22 11:42 Total Bilirubin 0.8 mg/dl (0.2-1.0) 04/28/22 10:30 AST 22 U/L (13-39) 04/28/22 11:42 ALT 21 U/L (7-52) 04/28/22 10:30 Alkaline Phosphatase 66 U/L (34-104) 04/28/22 10:30 Troponin I High Sens 8.6 pg/ml (0-14) 04/28/22 20:43 Total Protein 7.3 gm/dl (6.0-8.3) 04/28/22 10:30 Albumin 4.1 gm/dl (3.4-5.0) 04/28/22 10:30 Globulin 3.2 gm/dl (2.5-4.0) 04/28/22 10:30 Albumin/Globulin Ratio 1.3 (0.9-2) 04/28/22 10:30 TSH 1.569 uIu/ml (0.300-4.500) 04/28/22 10:30 SARS-CoV-2, RNA, NAAT NEGATIVE (NEGATIVE) 04/28/22 10:30 Impressions Chest X-Ray 04/28/22 10:15 XR chest 1V portable CLINICAL HISTORY: weakness COMPARISON STUDY: No previous studies for comparison. FINDINGS: Lung volumes are normal. Lungs are clear. There is no pneumothorax or pleural effusion. There is mild cardiomegaly. Mediastinal contours are normal. There is no evidence for pulmonary edema. IMPRESSION: No acute cardiopulmonary findings. Mild cardiomegaly. ACT 112: Negative or not required by law. Electronically signed by: Mynor Serrano M.D. 04/28/2022 11:04 AM Hospital Course (1) Atrial fibrillation with rapid ventricular response: Patient is a 51 yr female with H/O HTN, diet controlled DM II, obesity s/p gastric bypass, venous stasis presented to ER with c/o palpitations today with associated SOB, dizziness A-fib RVR Spontaneously converted to sinus CXR: No acute cardiopulmonary findings. Mild cardiomegaly. ECHO: Moderate concentric LVH. Left ventricle systolic function is normal. EF 60 to 65%. Right ventricle systolic function is normal. Left atrium is mildly dilated. Right atrial size is normal. Trace mitral and tricuspid regurgitation TSH WNL Troponin negative [id number]: 3 IV heparin>> transition to Eliquis Continue metoprolol for rate control Appreciate cardiology input Advised to follow-up with cardiology upon discharge (2) HTN (hypertension): Blood pressure uncontrolled Continue metoprolol succinate Started lisinopril 10 mg daily (3) Diabetes mellitus, type II: Diet controlled HbA1c 5.2 (4) Obesity: S/p gastric bypass BMI: 45 DVT Px Eliquis Code Status Full Code Total Time Total Time Spent Total Time Spent (In Minutes): 56 minutes Discharge Plan Discharge Items Patient Disposition: Home - Self-Care Reason For Visit: AFIB Discharge Diagnosis: Atrial fibrillation with rapid ventricular response Hypertension Condition on Discharge: Fair Activity: Per Instructions section Exercise/Sports: Wait until after follow-up appointment Non-emergency contact: Primary Care Provider and Media [employer]les Call non-emergency contact if: you have any medication questions, your symptoms worsen, your pain is concerning for you and you have a fever Follow-up/Referrals: PCP,NO [Primary Care Provider] - Diet: Carb Consistent or DM2 Addtl Attending Provider Instructions: Follow-up with your primary care physician as advised in 1 week Follow-up with your pt escort Dr. Hunt in 2-4 weeks Seek immediate medical attention if your symptoms reoccur or worsen Please take all medications as instructed on discharge list below. Please call if you have any questions or problems. You can reach a [facility] hospitalist on duty at [facility] 24 hours a day by calling [phone] Pending Studies at Discharge: No Stand-Alone Forms: My [facility] [employer], Smoking Cessation Medications and DC Order Prescriptions: New lisinopril 10 mg Tablet 10 mg PO QAM Qty: 30 1RF Eliquis 5 mg Tablet 5 mg PO BID Qty: 60 2RF Continued multivitamin Tablet 1 tab PO QAM zolpidem 5 mg tablet 5 mg PO HS PRN (Reason: Sleep) metoprolol succinate 50 mg Tablet Extended Release 24 Hr 50 mg PO DAILY Qty: 30 1RF Discharge Orders: Discharge Order (Routine); Ordered 04/29/22 Ordered By: Nazario Hickey Admission Data Admit Date/Time: 04/28/22 13:15 Attending Provider: Nazario Hickey Admit Provider: Kiki Jefferson I. Primary Care Provider: PCP,NO Other Providers: Kiki Jefferson I. ; Deven Horton
[2022-04-30] MEDS ORDERED: lisinopril 10 MG TAB PO SCH (09:00)
== END 2022-04-29 15:00 | disposition home or self-care (01) | DRG 309 ==
LOC: ED 09:52 → INTOOBSV 13:15 → SUATTDRO 13:15 → 2S 13:15

== ENCOUNTER 2023-07-18 20:38 | Observation (INO) ==
[2023-07-18] MEDS: LORazepam 1 MG TAB SL STA (21:05)
[2023-07-18] MEDS: dilTIAZem HCl 5 MG/ML 5 ML VIAL IV STA (21:05)
[2023-07-18] MEDS: ASPIRIN CHEW 324 MG PO STA (21:05)
[2023-07-18] MEDS: LORazepam 1 MG TAB ONE (21:07)
[2023-07-18] MEDS: SODIUM CHLORIDE 0.9% 500 ML IV STA (21:07)
[2023-07-18] MEDS: dilTIAZem HCl 5 MG/ML 5 ML VIAL IV ONE (21:07)
[2023-07-18 21:16] LABS: Basophils # (auto) 0.08 K/uL (0.00-0.20); Eosinophils % (auto) 3.7 %; Hematocrit (blood only) 43.6 % (37.0-47.0); Hemoglobin 14.7 g/dl (12.0-16.0); Immature Granulocytes # (auto) 0.02 K/uL (0.01-0.20); Immature Granulocytes % (auto) 0.2 %; Lymphocytes # (auto) 1.67 K/uL (1.20-3.40); Lymphocytes % (auto) 20.5 %; Mean Corpuscular Hemoglobin 31.1 pg (25.0-34.0); Mean Corpuscular Hgb Conc 33.7 g/dL (32.0-36.0); Mean Corpuscular Volume 92.2 fL (80.0-100.0); Mean Platelet Volume 10.5 fL (9.4-12.4); Monocytes # (auto) 0.75 K/uL (0.11-0.59); Monocytes % (auto) 9.2 %; Neutrophils # (auto) 5.31 K/uL (1.40-6.50); Neutrophils % (auto) 65.4 %; Platelet Count 224 K/uL (130-400); RDW Coefficient of Variation 13.4 % (11.5-14.5); RDW Standard Deviation 45.2 fL (36.4-46.3); Red Blood Count 4.73 M/uL (4.20-5.40); White Blood Count 8.13 K/ul (4.8-10.8)
[2023-07-18 21:34] LABS: BUN Creatinine Ratio 19.5 (10-20); Calcium 8.7 mg/dl (8.6-10.3); Creatinine Clr Calc Pharmacy 106.6 ml/min; Est GFR (Non-African American) 82.9 ml/min; Potassium 4.4 mmol/L (3.5-5.1)
[2023-07-18 21:41] LABS: Troponin I High Sensitivity 7.8 pg/ml (0-14)
[2023-07-18 21:44] LABS: INR 1.2 (0.9-1.1); Partial Thromboplastin Time 27 Seconds (21-31); Prothrombin Time 12.8 Seconds (9.0-12.0)
--- NOTE | 2023-07-18 22:14 | Emergency Department Note ---
History of Present Illness General Chief Complaint: Cardiac Assessment Stated Complaint: SOB, LIGHTHEADED, PALPITATIONS, CHEST DISCOMFORT Time Seen by Provider: 07/18/23 20:46 History of Present Illness Provider Complaint: + palpitations Time: 11:00 Duration: + Constant Severity: similar to previous episodes Context: + occurred during rest Arrhythmia history: + atrial fibrillation and + on anti-coagulants (Eliquis) Associated symptoms: + chest pain, + shortness of breath and + anxiety (Stress from work); no syncope, no near-syncope or no nausea HPI narrative: Patient reports she is no longer on metoprolol and is since down on carvedilol 25 mg twice daily Home Medications Medication Instructions Recorded Confirmed Type multivitamin 1 tab PO QAM 04/28/22 07/18/23 History zolpidem 5 mg tablet 5 mg PO HS PRN Sleep 04/28/22 07/18/23 History apixaban 5 mg tablet (Eliquis) 5 mg PO BID #60 tabs 04/29/22 07/18/23 Rx lisinopril 10 mg tablet 10 mg PO QAM #30 tabs 04/29/22 07/18/23 Rx Menopase Supp 2 tabs PO DAILY 07/18/23 07/18/23 History carvedilol 25 mg tablet 25 mg PO BID 07/18/23 07/18/23 History Allergies Allergy/AdvReac Type Severity Reaction Status Date / Time No Known Allergies Allergy Unverified 07/18/23 22:59 Past Med/Surg History Problem List (Updated 07/18/23 @ 23:09 by Imer Borjas MD) Obesity Diabetes mellitus, type II Venous stasis Atrial fibrillation with rapid ventricular response (Acute) SOB (shortness of breath) (Acute) Diabetes (Chronic) HTN (hypertension) (Chronic) Abdominal pain (Acute) Acute pain of right knee (Acute) Gastritis (Acute) Hamstring strain (Acute) Surgical History History of History of gastric bypass Family History Mother A-fib Other Diabetes Social History Smoking Status: Never smoker Second Hand Exposure: No; Do You Dip or Chew Tobacco: No; Hx Alcohol Use: Yes Alcohol Intake Frequency: Monthly or Less Hx Substance Use: No Preferred Language: Syriac Communication Ability: Effective Scale Tester Required: No Beliefs That Will Affect Care: None Current Living Situation: Family Feels Safe at Home: Yes Assistive Devices: None and Denture - Upper Physical Exam 2 Vital Signs: Vital Signs - 24 hr 07/18/23 20:41 07/18/23 21:08 07/18/23 21:08 Temperature 36.2 C L Temperature Source Temporal Artery Sc an Pulse Rate 134 H Pulse Rate [Apical ] 72 Pulse Rhythm [Apic al] Respiratory Rate 16 17 Respiratory Effort / Characteristics Non-Labored Sponta neous Respiratory Depth Normal Respiratory Patter n Regular Blood Pressure 145/85 H Blood Pressure [Ri ght Arm] 113/67 Blood Pressure Katty n 105 Blood Pressure Katty n [Right Arm] 82 Blood Pressure Pos ition Sitting Pulse Oximetry 96 97 97 Oxygen Delivery Me thod Room Air Room Air Room Air Sepsis Recent Feve r Within 48 Hours No Sepsis New/Unexpla ined Change in Men maryse Status N/A Sepsis Action Take n by Nursing No Action Required 07/18/23 21:08 07/18/23 21:46 07/18/23 22:10 Temperature Temperature Source Pulse Rate 78 Pulse Rate [Apical ] 75 Pulse Rhythm [Apic al] Irregular Respiratory Rate 18 Respiratory Effort / Characteristics Respiratory Depth Respiratory Patter n Blood Pressure Blood Pressure [Ri ght Arm] 138/96 Blood Pressure Katty n Blood Pressure Katty n [Right Arm] 110 Blood Pressure Pos ition Pulse Oximetry 97 96 Oxygen Delivery Me thod Room Air Room Air Sepsis Recent Feve r Within 48 Hours Sepsis New/Unexpla ined Change in Men maryse Status Sepsis Action Take n by Nursing Physical Exam: Physical Exam GENERAL: oriented to person, place, and time. appears well-developed and well- nourished. HENT: Exam performed. - Head: Normocephalic and atraumatic. EYES: Conjunctivae and EOM are normal. Right eye exhibits no discharge. Left eye exhibits no discharge. No scleral icterus. NECK: Normal range of motion. Neck supple. No JVD present. CV: Tachycardic rate, irregular rhythm, normal heart sounds and intact distal pulses. There is no peripheral edema. Palpable radial pulses bue. PULM/CHEST: Effort normal and breath sounds normal. No respiratory distress. No stridor. no wheezes. no rales. ABD: The abdomen is soft. There is no tenderness. NEURO: Motor and sensation grossly intact. SKIN: Skin is warm and dry. He is not diaphoretic. PSYCH: normal mood and affect. Behavior is normal. Judgment and thought content normal. Course Course 2045: The patient was evaluated in room A2. A complete history and physical exam was performed Cardiac monitoring: An order was placed for continuous cardiac monitoring. The monitor shows a rate of 130-160 with atrial fibrilation rhythm interpreted by me Patient found to be in A-fib RVR. Cardizem 20 mg IV push ordered for the patient. Ventricular rate improved to 70-90. Blood pressure stable. 2255: Vital signs stable. Labs and imaging within normal limits. Discussed case with [facility] cardiology on-call Dr. Philippe about possibly discharging the patient home and about possible changes to medications. After discussion with Dr. hPilippe, it was thought that it might be better for the patient to be watched in the hospital overnight to make sure she does not go back into A-fib RVR. Discussed with patient and she is amenable to stay in the hospital. [facility] hospitalist team notified Dr. Marmolejo will evaluate the patient. Patient be kept n.p.o. in case the patient needs to be cardioverted tomorrow. Administered Medications Discontinued Medications Aspirin (Aspirin Chew 324 Mg) 324 mg PO NOW STA Stop: 07/18/23 20:47 Last Admin: 07/18/23 21:05 Dose: 324 mg Documented By: NATASHA Diltiazem HCl (Diltiazem Hcl 5 Mg/Ml 5 Ml Vial) Confirm Administered Dose 25 mg IV .STK-MED ONE Stop: 07/18/23 20:50 Last Admin: 07/18/23 21:07 Dose: Not Given Documented By: NATASHA Diltiazem HCl (Diltiazem Hcl 5 Mg/Ml 5 Ml Vial) 20 mg IV NOW STA Stop: 07/18/23 20:51 Last Admin: 07/18/23 21:05 Dose: 20 mg Documented By: NATASHA Co-signed By: ACC Sodium Chloride (Nss) 500 mls @ 999 mls/hr IV .Q31M STA Stop: 07/18/23 21:16 Last Infusion: 07/18/23 21:45 Dose: Infused Documented By: Admin: 05/15/24 21:07 Dose: 999 mls/hr Documented By: NATASHA Lorazepam (Lorazepam 1 Mg Tab) 1 mg SL NOW STA Stop: 07/18/23 20:51 Last Admin: 07/18/23 21:05 Dose: 1 mg Documented By: NATASHA Lorazepam (Lorazepam 1 Mg Tab) Confirm Administered Dose 1 mg .ROUTE .STK-MED ONE Stop: 07/18/23 20:52 Last Admin: 07/18/23 21:07 Dose: Not Given Documented By: NATASHA Medical Decision Making Laboratory Data Attestation: I reviewed the patient's lab results. 07/18/23 20:57 07/18/23 20:57 Lab Results 07/18/23 Range/Units 20:57 WBC 8.13 (4.8-10.8) K/ul RBC 4.73 (4.20-5.40) M/uL Hgb 14.7 (12.0-16.0) g/dl Hct 43.6 (37.0-47.0) % MCV 92.2 (80.0-100.0) fL MCH 31.1 (25.0-34.0) pg MCHC 33.7 (32.0-36.0) g/dL RDW Std Deviation 45.2 (36.4-46.3) fL RDW Coeff of Kay 13.4 (11.5-14.5) % Plt Count 224 (130-400) K/uL MPV 10.5 (9.4-12.4) fL Immature Gran % (Auto) 0.2 % Neut % (Auto) 65.4 % Lymph % (Auto) 20.5 % Charles % (Auto) 9.2 % Eos % (Auto) 3.7 % Baso % (Auto) 1.0 % Neut # (Auto) 5.31 (1.40-6.50) K/uL Lymph # (Auto) 1.67 (1.20-3.40) K/uL Charles # (Auto) 0.75 H (0.11-0.59) K/uL Eos # (Auto) 0.30 (0.00-0.50) K/uL Baso # (Auto) 0.08 (0.00-0.20) K/uL Immature Gran # (Auto) 0.02 (0.01-0.20) K/uL PT 12.8 H (9.0-12.0) Seconds INR 1.2 H (0.9-1.1) APTT 27 (21-31) Seconds PTT Ratio 1.0 Sodium 138 (136-145) mmol/L Potassium 4.4 (3.5-5.1) mmol/L Chloride 110 H (98-107) mmol/L Carbon Dioxide 23 (21-32) mmol/L Anion Gap 5 (3-11) BUN 16 (6-23) mg/dl Creatinine 0.82 (0.6-1.2) mg/dl Est Cr Clr Drug Dosing 106.6 ml/min Est GFR ( Amer) 96.0 ml/min Est GFR (Non-Af Amer) 82.9 ml/min BUN/Creatinine Ratio 19.5 (10-20) Glucose 203 H (70-99(Fasting)) mg/dl Calcium 8.7 (8.6-10.3) mg/dl Troponin I High Sens 7.8 (0-14) pg/ml Lipase 34 (11-82) U/L Imaging Data Attestation: I personally reviewed and interpreted this imaging study as follows: My Impression: Chest x-ray negative. Airway clear. No pneumothorax. No consolidation. No cardiomegaly or cephalization.. No free air under the diaphragm. No fractures of the skeletal structures. ECG Data Attestation: I personally reviewed and interpreted this ECG as follows: Additional Comments: EKG #1 at 2047: Atrial fibrillation with rate of 139. QRS and QTc intervals within normal limits. No ST elevation or ST depression. EKG #2 at 2100: Atrial fibrillation with a rate of 100. QRS and QTc intervals are within normal limits. No ST elevation or ST depression. MDM Narrative 2045: The patient was evaluated in room A2. A complete history and physical exam was performed Cardiac monitoring: An order was placed for continuous cardiac monitoring. The monitor shows a rate of 130-160 with atrial fibrilation rhythm interpreted by me Patient found to be in A-fib RVR. Cardizem 20 mg IV push ordered for the patient. Ventricular rate improved to 70-90. Blood pressure stable. 2255: Vital signs stable. Labs and imaging within normal limits. Discussed case with [facility] cardiology on-call Dr. Philippe about possibly discharging the patient home and about possible changes to medications. After discussion with Dr. Philippe, it was thought that it might be better for the patient to be watched in the hospital overnight to make sure she does not go back into A-fib RVR. Discussed with patient and she is amenable to stay in the hospital. [facility] hospitalist team notified Dr. Marmolejo will evaluate the patient. Patient be kept n.p.o. in case the patient needs to be cardioverted tomorrow. Impression & Plan Atrial fibrillation with rapid ventricular response Critical Care Time Critical Care Time: Yes Total Critical Care Time: 51 I have personally spent greater than 51 minutes of critical care time in the direct management of this patient. This includes bedside care, interpretation of diagnostic studies, and testing, discussion with consultants, patient, and family members, and other required patient management activities. This 51 minutes is in excess of all separately billable procedures. Discharge Plan Visit Data Chief Complaint: Cardiac Assessment Stated Complaint: SOB, LIGHTHEADED, PALPITATIONS, CHEST DISCOMFORT ED Provider: Imer Borjas Discharge Problem: Atrial fibrillation with rapid ventricular response Patient Disposition: Admitted As Inpatient Forms Stand Alone Forms: [facility] Prescriptions Prescriptions: No Action multivitamin Tablet 1 tab PO QAM zolpidem 5 mg tablet 5 mg PO HS PRN (Reason: Sleep) lisinopril 10 mg Tablet 10 mg PO QAM Qty: 30 1RF Eliquis 5 mg Tablet 5 mg PO BID Qty: 60 2RF carvedilol 25 mg tablet 25 mg PO BID Menopase Supp 2 tabs PO DAILY Referrals Referrals: Mireille Aviles PA-C [Primary Care Provider] -
[2023-07-18 23:55] LABS: Thyroid Stimulating Hormone 1.337 uIu/ml (0.300-4.500)
--- NOTE | 2023-07-18 23:56 | History & Physical Report ---
Date of Service July 18, 2023 Assessment & Plan (1) Atrial fibrillation with rapid ventricular response: Plan: Recurrent A-fib Possible precipitants : Uncontrolled hypertension, viral RTI, work stress Patient on Eliquis Patient in and out of A-fib at the ER valvular heart disease (trace MR/TR, TTE 2022) morbid obesity status post gastric bypass RYLIE (currently not on CPAP) DM2 diet-controlled, BSG 200s, well-controlled as of recent hemoglobin A1c of 5.2 last year OBS PCU Continue home Coreg Titrate home lisinopril for better BP control Supportive management for viral RTI Anxiolytic as needed Cardiology consult Re: Recurrent A-fib (ER provider already in touch with Dr. Hoffman who recommends n.p.o. status if with persistent A-fib for possible cardioversion in a.m.) ISS BG goal 1 10-1 40, update hemoglobin A1c DVT prophylaxis. Eliquis Full code Text document was generated using [employer] voice recognition software. It may contain grammatical or spelling errors. Kindly contact undersigned for clarification of any documentation item in question. History of Present Illness Chief Complaint: Palpitations Primary Care Provider: Mireille Aviles PA-C History obtained from patient and records. Medical history significant for PAF on Eliquis, valvular heart disease (trace M R/TR, TTE 2022), hypertension, morbid obesity status post gastric bypass, RYLIE (currently not on CPAP), DM2 diet-controlled. Last confinement April 2022 for new onset A-fib with RVR with spontaneous conversion to NSR. Patient discharged on Toprol-XL and Eliquis. 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 Patient experienced palpitations this morning around lunchtime. Chest discomfort and palpitations without unusual shortness of breath. Dry cough symptoms, unable to expectorate. 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 Compliant with home meds. Some stress at work. Denies inordinate caffeine intake or decongestant intake. Dizziness described as lightheadedness without headache symptoms. Denies fluid retention. Unaware of sleep apnea symptoms despite not wearing CPAP machine for years now post gastric bypass surgery. Patient noted to be in rapid A-fib, heart rate 130s upon arrival at the ER. IV Cardizem bolus administered at the ER. 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 Allergies Allergy/AdvReac Type Severity Reaction Status Date / Time No Known Allergies Allergy Unverified 07/18/23 22:59 Home Medications Medication Instructions Recorded Confirmed Type multivitamin 1 tab PO QAM 04/28/22 07/18/23 History zolpidem 5 mg tablet 5 mg PO HS PRN Sleep 04/28/22 07/18/23 History apixaban 5 mg tablet (Eliquis) 5 mg PO BID #60 tabs 04/29/22 07/18/23 Rx lisinopril 10 mg tablet 10 mg PO QAM #30 tabs 04/29/22 07/18/23 Rx Menopase Supp 2 tabs PO DAILY 07/18/23 07/18/23 History carvedilol 25 mg tablet 25 mg PO BID 07/18/23 07/18/23 History Past Med/Surg History Problem List (Updated 07/19/23 @ 08:16 by GM Patten) Paroxysmal atrial fibrillation with RVR Obesity Diabetes mellitus, type II Venous stasis Atrial fibrillation with rapid ventricular response (Acute) SOB (shortness of breath) (Acute) Diabetes (Chronic) HTN (hypertension) (Chronic) Abdominal pain (Acute) Acute pain of right knee (Acute) Gastritis (Acute) Hamstring strain (Acute) Surgical History History of History of gastric bypass Family History Mother A-fib Other Diabetes Social History Smoking Status: Never smoker Second Hand Exposure: No; Do You Dip or Chew Tobacco: No; Hx Alcohol Use: Yes Alcohol Intake Frequency: Monthly or Less Hx Substance Use: No Preferred Language: Vincentian Communication Ability: Effective Negative Checker Required: No Beliefs That Will Affect Care: None Current Living Situation: Spouse and Family Feels Safe at Home: Yes Safety Concerns: Feels Safe At This Time Assistive Devices: None Review of Systems Review of Systems: As per HPI, all other systems reviewed and negative Physical Exam Physical Exam: GENERAL: Comfortable, pleasant, morbidly obese, looks older than stated age, no respiratory distress SKIN: Normal color, warm HEENT: [place] palpebral conjunctivae, no ptosis, dry buccal mucosa NECK : Supple, short neck, no tenderness CHEST : Decreased breath sounds, scattered expiratory wheezes, no tenderness HEART : Regular, no obvious murmurs ABDOMEN: Some distention, nontender EXTREMITIES : Minimal LE swelling, no LE tenderness, no other conspicuous deformities noted NEUROLOGIC : Coherent, no facial asymmetry, no other gross focality Results & Data Results & Data Vital Signs (Past 12 Hours) Vital Signs Temp Pulse Pulse Resp BP BP Pulse Ox 07/18/23 23:01 158/104 H 07/18/23 23:01 74 24 95 07/18/23 23:00 90 13 98 07/18/23 22:10 78 07/18/23 21:46 75 18 138/96 96 07/18/23 21:08 97 07/18/23 21:08 72 17 113/67 97 07/18/23 21:08 97 07/18/23 20:41 36.2 C L 134 H 16 145/85 H 96 O2 Del Method 07/18/23 23:01 07/18/23 23:01 07/18/23 23:00 07/18/23 22:10 07/18/23 21:46 Room Air 07/18/23 21:08 Room Air 07/18/23 21:08 Room Air 07/18/23 21:08 Room Air 07/18/23 20:41 Room Air Laboratory Results Laboratory Results WBC 8.13 K/ul (4.8-10.8) 07/18/23 20:57 RBC 4.73 M/uL (4.20-5.40) 07/18/23 20:57 Hgb 14.7 g/dl (12.0-16.0) 07/18/23 20:57 Hct 43.6 % (37.0-47.0) 07/18/23 20:57 MCV 92.2 fL (80.0-100.0) 07/18/23 20:57 MCH 31.1 pg (25.0-34.0) 07/18/23 20:57 MCHC 33.7 g/dL (32.0-36.0) 07/18/23 20:57 RDW Std Deviation 45.2 fL (36.4-46.3) 07/18/23 20:57 RDW Coeff of Kay 13.4 % (11.5-14.5) 07/18/23 20:57 Plt Count 224 K/uL (130-400) 07/18/23 20:57 MPV 10.5 fL (9.4-12.4) 07/18/23 20:57 Immature Gran % (Auto) 0.2 % 07/18/23 20:57 Neut % (Auto) 65.4 % 07/18/23 20:57 Lymph % (Auto) 20.5 % 07/18/23 20:57 [place]lin % (Auto) 9.2 % 07/18/23 20:57 Eos % (Auto) 3.7 % 07/18/23 20:57 Baso % (Auto) 1.0 % 07/18/23 20:57 Neut # (Auto) 5.31 K/uL (1.40-6.50) 07/18/23 20:57 Lymph # (Auto) 1.67 K/uL (1.20-3.40) 07/18/23 20:57 [place]lin # (Auto) 0.75 K/uL (0.11-0.59) H 07/18/23 20:57 Eos # (Auto) 0.30 K/uL (0.00-0.50) 07/18/23 20:57 Baso # (Auto) 0.08 K/uL (0.00-0.20) 07/18/23 20:57 Immature Gran # (Auto) 0.02 K/uL (0.01-0.20) 07/18/23 20:57 PT 12.8 Seconds (9.0-12.0) H 07/18/23 20:57 INR 1.2 (0.9-1.1) H 07/18/23 20:57 APTT 27 Seconds (21-31) 07/18/23 20:57 PTT Ratio 1.0 07/18/23 20:57 Sodium 138 mmol/L (136-145) 07/18/23 20:57 Potassium 4.4 mmol/L (3.5-5.1) 07/18/23 20:57 Chloride 110 mmol/L (98-107) H 07/18/23 20:57 Carbon Dioxide 23 mmol/L (21-32) 07/18/23 20:57 Anion Gap 5 (3-11) 07/18/23 20:57 BUN 16 mg/dl (6-23) 07/18/23 20:57 Creatinine 0.82 mg/dl (0.6-1.2) 07/18/23 20:57 Est Cr Clr Drug Dosing 106.6 ml/min 07/18/23 20:57 Est GFR ( Amer) 96.0 ml/min 07/18/23 20:57 Est GFR (Non-Af Amer) 82.9 ml/min 07/18/23 20:57 BUN/Creatinine Ratio 19.5 (10-20) 07/18/23 20:57 Glucose 203 mg/dl (70-99(Fasting)) H 07/18/23 20:57 Calcium 8.7 mg/dl (8.6-10.3) 07/18/23 20:57 Magnesium 2.0 mg/dl (1.7-2.4) 07/18/23 20:57 Troponin I High Sens 7.8 pg/ml (0-14) 07/18/23 20:57 Lipase 34 U/L (11-82) 07/18/23 20:57 Diagnostic Findings Chest x-ray as per my interpretation cardiomegaly EKG as per my interpretation : Rate 140, SVT, LAD, LAFB, negative ischemia
[2023-07-19] MEDS ORDERED: GLUCOSE 10 TAB/TUBE PO PRN (00:27)
[2023-07-19] MEDS ORDERED: LORazepam 0.5 MG TAB PO PRN (00:27)
[2023-07-19] MEDS ORDERED: GLUCOSE 40% GEL 15 GM TUBE PO PRN (00:27)
[2023-07-19] MEDS ORDERED: GLUCAGON FOR INJ 1 MG VIAL SQ PRN (00:27)
[2023-07-19] MEDS ORDERED: ZOLPIDEM TARTRATE 5 MG TAB PO PRN (00:27)
[2023-07-19] MEDS ORDERED: DEXTROSE 50% 50 ML SYRINGE IV PRN (00:27)
[2023-07-19] MEDS ORDERED: oxyCODONE HCL IR 5 MG TAB (IMMEDIATE RELEASE) PO PRN (00:27)
[2023-07-19] MEDS ORDERED: CARBOHYDRATES FOR HYPOGLYCEMIA PO PRN (00:27)
[2023-07-19] MEDS: INSULIN ASPART PER UNIT CHARGE SC SCH (00:41)
[2023-07-19] MEDS: SODIUM CHLORIDE 0.9% 1,000 ML IV ONE (00:46)
[2023-07-19] MEDS: METOPROLOL TARTRATE 1 MG/ML VIAL IV STA ×2 (00:46→02:19)
[2023-07-19] MEDS: guaiFENesin 600 MG TABCR PO STA (01:08)
[2023-07-19] MEDS: LEVALBUTEROL 1.25 MG/3 ML NEB NEB STA (01:08)
[2023-07-19] MEDS: IPRATROPIUM BROMIDE NEB SOLN 0.02% 0.5MG/2.5ML VIAL INH STA (01:08)
[2023-07-19] MEDS ORDERED: ACETAMINOPHEN 325 MG TAB PO PRN (01:48)
[2023-07-19] MEDS ORDERED: NITROGLYCERIN SL 0.4 MG/TAB TAB SL PRN (01:48)
[2023-07-19 01:52] LABS: Adenovirus PCR Not Detected (NotDetected); Bordetella parapertussis PCR Not Detected (NotDetected); Bordetella pertussis PCR Not Detected (NotDetected); Chlamydia pneumoniae PCR Not Detected (NotDetected); Coronavirus 229E PCR Not Detected (NotDetected); Coronavirus CoV-2 (COVID19)PCR Not Detected (NotDetected); Coronavirus HKU1 PCR Not Detected (NotDetected); Coronavirus NL63 PCR Not Detected (NotDetected); Coronavirus OC43PCR Not Detected (NotDetected); Human Metapneumovirus PCR Not Detected (NotDetected); Influenza A PCR Not Detected (NotDetected); Influenza B PCR Not Detected (NotDetected); Mycoplasma pneumoniae PCR Not Detected (NotDetected); Parainfluenza Virus 1 PCR Not Detected (NotDetected); Parainfluenza Virus 2 PCR Not Detected (NotDetected); Parainfluenza Virus 3 PCR Not Detected (NotDetected); Parainfluenza Virus 4 PCR Not Detected (NotDetected); Respiratory Syncytial VirusPCR Not Detected (NotDetected); Rhinovirus/Enterovirus PCR Not Detected (NotDetected)
[2023-07-19] MEDS: carvediloL 25 MG TAB PO ONE (06:08)
--- NOTE | 2023-07-19 07:38 | XRay Report ---
XR chest 1V portable HISTORY: Chest pain, nonspecific COMPARISON: Chest 04/28/2022. FINDINGS: The cardiac silhouette remains mildly enlarged. No pneumothorax. No pleural effusions. The lungs are clear. No evidence for pulmonary edema. IMPRESSION: No significant change compared to the prior study. No acute process. ACT 112: Negative or not required by law. Electronically signed by: Robel Vásquez M.D. 07/19/2023 7:36 AM
--- NOTE | 2023-07-19 08:05 | Electrocardiogram Report ---
Test Reason : Blood Pressure : / mmHG Vent. Rate : 099 BPM Atrial Rate : 000 BPM P-R Int : 000 ms QRS Dur : 086 ms QT Int : 326 ms P-R-T Axes : 000 200 142 degrees QTc Int : 418 ms Likely limb lead reversal Atrial fibrillation Right superior axis deviation Abnormal ECG When compared with ECG of 18-JUL-2023 21:00, (unconfirmed) QRS axis Shifted left Confirmed by Huang Mina ([id number]) on 07/19/2023 8:04:57 AM Referred By: Felipe aMldonado Confirmed By:Juan Mina
--- NOTE | 2023-07-19 08:06 | Electrocardiogram Report ---
Test Reason : Blood Pressure : / mmHG Vent. Rate : 139 BPM Atrial Rate : 000 BPM P-R Int : 000 ms QRS Dur : 082 ms QT Int : 308 ms P-R-T Axes : 000 -08 064 degrees QTc Int : 468 ms Atrial fibrillation Otherwise normal ECG When compared with ECG of 28-APR-2022 13:37, Vent. rate has increased BY 71 BPM Confirmed by Huang Mina ([id number]) on 07/19/2023 8:06:04 AM Referred By: Felipe Maldonado Confirmed By:Juan Mina
[2023-07-19 08:12] LABS: Basophils # (auto) 0.06 K/uL (0.00-0.20); Eosinophils # (auto) 0.31 K/uL (0.00-0.50); Eosinophils % (auto) 5.2 %; Hematocrit (blood only) 38.6 % (37.0-47.0); Hemoglobin 12.9 g/dl (12.0-16.0); Immature Granulocytes # (auto) 0.02 K/uL (0.01-0.20); Immature Granulocytes % (auto) 0.3 %; Lymphocytes # (auto) 1.36 K/uL (1.20-3.40); Mean Corpuscular Hemoglobin 30.6 pg (25.0-34.0); Mean Corpuscular Hgb Conc 33.4 g/dL (32.0-36.0); Mean Corpuscular Volume 91.7 fL (80.0-100.0); Mean Platelet Volume 10.5 fL (9.4-12.4); Monocytes # (auto) 0.68 K/uL (0.11-0.59); Monocytes % (auto) 11.5 %; Neutrophils # (auto) 3.48 K/uL (1.40-6.50); Platelet Count 190 K/uL (130-400); RDW Coefficient of Variation 13.6 % (11.5-14.5); RDW Standard Deviation 45.7 fL (36.4-46.3); Red Blood Count 4.21 M/uL (4.20-5.40); White Blood Count 5.91 K/ul (4.8-10.8)
--- NOTE | 2023-07-19 08:17 | Cardiology Consultation ---
Date of Consultation July 19, 2023 Assessment & Plan (1) Paroxysmal atrial fibrillation with RVR: (2) HTN (hypertension): Plan Impression: 52-year-old female with recurrent atrial fibrillation with RVR; symptomatic with chest tightness and palpitations. Rates as high as 130s. Treated with IV diltiazem in the ED. Self converted to NSR 07/19/2023 at 0259. Plan: Paroxysmal atrial fibrillation: Episode of PAF in the setting of high stressors. Self converted to NSR 07/19/2023 at 0259. 1. Continue Coreg 25 mg BID- if further episodes of PAF can consider increase to 37.5 mg BID as an outpatient. 2. Continue Eliquis 5 mg BID for stroke prevention Hypertension: 1. Continue lisinopril 20 mg daily (increased dose) Case discussed with Dr. Hoffman. No further recommendations from a cardiology standpoint. Okay for discharge. Will need follow up in the outpatient cardiology clinic in 4-6 weeks. I spent a total of 40 minutes on the date of service in preparation, delivery, and documentation of the care provided to the patient excluding any time spent in the performance of separately billed services. GM Scales Department of Cardiology, [facility] This chart was completed in part utilizing Speech Voice Recognition Software. Grammatical errors, random word insertions, pronoun errors, and incomplete sentences are an occasional consequence of this system due to software limitations, ambient noise, and hardware issues. Any formal questions or concerns about the content, text, or information contained within the body of this dictation should be directly addressed to the provider for clarification. Supervising Physician Co-Signing Physician Notes Attending attestation: Case reviewed with the advanced practitioner. I have personally performed a history and physical examination on the patient. I have reviewed the advanced practitioner's documentation on the date of service referenced in note, and I agree with, and take responsibility for the plan of care. Subjective: Patient feeling well. Converted to SR at 2:59 am without conversion pause. Exam: Chronic LE venous stais changes Data: EKG this am SR at 64, normal EKG. Echo 04/29/22: Moderate concentric LVH, normal LV wall motion, LVEF 60-65%, trace MR, trace TR Impression/ Plan: -As noted above. 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 -Follow up with [facility] or in [place], depending on patient's preference. She saw [facility] after her visit to [place] with AF in 04/2022. I spent a total of 20 minutes coordinating, documenting, and providing care for this patient excluding time spent in the performance of separately billed services or time spent by another provider. Yo Hoffman DO History of Present Illness Reason for Consultation: Paroxysmal atrial fibrillation with RVR Requesting Physician: Adonis hospitalist Attending Physician: Jamie Taylor MD History of Present Illness 52-year-old female who presented to [facility] emergency department last evening due to palpitations and chest discomfort. Found to be in recurrent paroxysmal atrial fibrillation with rates in the 130s. Treated with IV Cardizem bolus in the ER. Converted to NSR this am 07/19/2023 at 0259. 07/19/2023: Telemetry: Initially AFIB RVR, converted to SR at 0259 (07/19/2023) without conversion pause EKG: repeat pending 07/19/23, SR at 64 bpm, normal EKG. QTc 458 ms. Upon entrance into the room patient resting on the edge of the bed. 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 Believes that the stress of planning graduation caused her episode of AFIB. She can pinpoint the exact situation that caused the palpitations. She denies chest pain, shortness of breath, palpitations, dizziness, syncope or near syncope. No orthopnea, PND, or increased lower extremity edema. No fever, chills, cough, hematochezia, melena, or hemoptysis. Past medical history: Hypertension Paroxysmal A-fib, initially diagnosed 04/2022-status post spontaneous conversion to normal sinus rhythm following medication administration, on Eliquis Prior gastric bypass surgery Allergies Allergy/AdvReac Type Severity Reaction Status Date / Time No Known Allergies Allergy Unverified 07/18/23 22:59 Home Medications Medication Instructions Recorded Confirmed Type multivitamin 1 tab PO QAM 04/28/22 07/18/23 History zolpidem 5 mg tablet 5 mg PO HS PRN Sleep 04/28/22 07/18/23 History apixaban 5 mg tablet (Eliquis) 5 mg PO BID #60 tabs 04/29/22 07/18/23 Rx lisinopril 10 mg tablet 10 mg PO QAM #30 tabs 04/29/22 07/18/23 Rx Menopase Supp 2 tabs PO DAILY 07/18/23 07/18/23 History carvedilol 25 mg tablet 25 mg PO BID 07/18/23 07/18/23 History Patient History Surgical History History of History of gastric bypass Family History Mother A-fib Other Diabetes Social History Smoking Status: Never smoker Second Hand Exposure: No; Do You Dip or Chew Tobacco: No; Hx Alcohol Use: Yes Alcohol Intake Frequency: Monthly or Less Hx Substance Use: No Preferred Language: Haitian Communication Ability: Effective Visiting Teacher Required: No Beliefs That Will Affect Care: None Current Living Situation: Spouse and Family Feels Safe at Home: Yes Safety Concerns: Feels Safe At This Time Assistive Devices: None Review of Systems Review of Systems: All systems reviewed & are unremarkable except as noted in HPI & below Physical Exam Constitutional: well developed and well nourished; no acute distress ENMT: external ear and nose normal, oropharynx normal Neck: normal visual inspection and trachea midline Respiratory: normal respiratory effort, lungs clear to auscultation Cardiovascular: RRR, no murmur, no edema Heart Sounds: normal S1 and normal S2 Vessels: no JVD Extremities: no edema Gastrointestinal (Abdomen): normal bowel sounds, soft, nontender, no hepatosplenomegaly Musculoskeletal: no cyanosis or clubbing, extremities motor strength 5/5 Skin: no rashes, warm and dry Neurologic: PERRL, EOMI, accommodation nl, no face palsy, no dysarthria Psychiatric: A+Ox3, euthymic affect Results & Data Vital Signs (Past 12 Hours) Vital Signs Temp Pulse Pulse Pulse Resp BP BP 07/19/23 07:28 36.5 C 68 16 147/94 H 07/19/23 02:46 36.4 C L 101 H 16 07/19/23 02:40 104 H 128/88 07/19/23 02:19 106 H 167/113 H 07/19/23 02:05 101 H 07/19/23 01:49 101 H 167/113 H 07/19/23 00:47 144/106 H 07/19/23 00:47 120 H 11 L 07/19/23 00:46 116 H 144/106 H 07/19/23 00:32 94 H 15 07/19/23 00:00 83 16 07/18/23 23:59 100 H 16 07/18/23 23:59 134/107 H 07/18/23 23:58 171/106 H 07/18/23 23:58 104 H 14 07/18/23 23:32 171/130 H 07/18/23 23:32 84 15 07/18/23 23:01 158/104 H 07/18/23 23:01 74 24 07/18/23 23:00 90 13 07/18/23 22:10 78 07/18/23 21:46 75 18 07/18/23 21:08 07/18/23 21:08 72 17 07/18/23 21:08 07/18/23 20:41 36.2 C L 134 H 16 145/85 H BP Pulse Ox O2 Del Method 07/19/23 07:28 96 Room Air 07/19/23 02:46 167/113 H 95 Room Air 07/19/23 02:40 07/19/23 02:19 07/19/23 02:05 07/19/23 01:49 07/19/23 00:47 07/19/23 00:47 07/19/23 00:46 07/19/23 00:32 98 07/19/23 00:00 98 07/18/23 23:59 99 07/18/23 23:59 07/18/23 23:58 07/18/23 23:58 98 07/18/23 23:32 07/18/23 23:32 98 07/18/23 23:01 07/18/23 23:01 95 07/18/23 23:00 98 07/18/23 22:10 07/18/23 21:46 138/96 96 Room Air 07/18/23 21:08 97 Room Air 07/18/23 21:08 113/67 97 Room Air 07/18/23 21:08 97 Room Air 07/18/23 20:41 96 Room Air Laboratory Results Cardiac Enzymes 07/18/23 Range/Units 20:57 Troponin I High Sens 7.8 (0-14) pg/ml Coagulation 07/18/23 Range/Units 20:57 PT 12.8 H (9.0-12.0) Seconds APTT 27 (21-31) Seconds CBC 07/18/23 07/19/23 Range/Units 20:57 07:32 WBC 8.13 5.91 (4.8-10.8) K/ul RBC 4.73 4.21 (4.20-5.40) M/uL Hgb 14.7 12.9 (12.0-16.0) g/dl Hct 43.6 38.6 (37.0-47.0) % Plt Count 224 190 (130-400) K/uL Neut # (Auto) 5.31 3.48 (1.40-6.50) K/uL Lymph # (Auto) 1.67 1.36 (1.20-3.40) K/uL [place] # (Auto) 0.75 H 0.68 H (0.11-0.59) K/uL Eos # (Auto) 0.30 0.31 (0.00-0.50) K/uL Baso # (Auto) 0.08 0.06 (0.00-0.20) K/uL Comprehensive Metabolic Panel 07/18/23 07/19/23 Range/Units 20:57 07:32 Sodium 138 138 (136-145) mmol/L Potassium 4.4 4.1 (3.5-5.1) mmol/L Chloride 110 H 109 H (98-107) mmol/L Carbon Dioxide 23 24 (21-32) mmol/L BUN 16 16 (6-23) mg/dl Creatinine 0.82 0.59 L (0.6-1.2) mg/dl Glucose 203 H 124 H (70-99(Fasting)) mg/dl Calcium 8.7 8.4 L (8.6-10.3) mg/dl Intake and Output 07/18/23 07/19/23 07/19/23 22:59 06:59 14:59 Intake Total 500 / 650 150 / 650 Balance 500 / 650 150 / 650 Intake: IV 500 / 500 Sodium Chloride 0.9% 500 ml @ 500 / 500 999 mls/hr IV .Q31M STA Rx#: [id number] Oral 150 / 150 Other: # Unmeasured Voids 1 Weight 108.6 kg 144 kg Weight Measurement Method Chair Scale Built in [facility] (2) HTN (hypertension) Hypertension type: primary hypertension Qualified Code(s): I10 - Essential (primary) hypertension
[2023-07-19 08:23] LABS: Estimated Average Glucose 114 mg/dl; Hemoglobin A1C 5.6 % (4.5-5.6)
[2023-07-19 08:28] LABS: BUN Creatinine Ratio 27.1 (10-20); Calcium 8.4 mg/dl (8.6-10.3); Creatinine Clr Calc Pharmacy 173.3 ml/min; Est GFR (Non-African American) 106.1 ml/min; Potassium 4.1 mmol/L (3.5-5.1)
[2023-07-19] MEDS ORDERED: lisinopril 10 MG TAB PO SCH (09:00)
[2023-07-19] MEDS ORDERED: carvediloL 25 MG TAB PO SCH ×2 (09:00→21:00)
[2023-07-19] MEDS: lisinopril 20 MG TAB PO SCH (09:03)
[2023-07-19] MEDS: MULTIVITAMIN TAB PO SCH (09:04)
[2023-07-19] MEDS: APIXABAN 5 MG TABLET PO SCH (09:04)
[2023-07-19] MEDS: guaiFENesin 600 MG TABCR PO SCH (09:04)
--- NOTE | 2023-07-19 14:25 | Electrocardiogram Report ---
Test Reason : Blood Pressure : / mmHG Vent. Rate : 064 BPM Atrial Rate : 064 BPM P-R Int : 158 ms QRS Dur : 092 ms QT Int : 444 ms P-R-T Axes : 022 045 020 degrees QTc Int : 458 ms Normal sinus rhythm Normal ECG When compared with ECG of 19-JUL-2023 03:48, (unconfirmed) No significant change was found Confirmed by Huang Mina ([id number]) on 07/19/2023 2:24:43 PM Referred By: Felipe Maldonado Confirmed By:Juan Mnia
--- NOTE | 2023-07-19 16:56 | Discharge Summary ---
Discharge Summary Date of Service July 19, 2023 Notes For Next Care Provider Medication Changes From Visit None Admission HPI Per Admitting Provider History obtained from patient and records. Medical history significant for PAF on Eliquis, valvular heart disease (trace MR/TR, TTE 2022), hypertension, morbid obesity status post gastric bypass, RYLIE (currently not on CPAP), DM2 diet-controlled. Last confinement April 2022 for new onset A-fib with RVR with spontaneous conversion to NSR. Patient discharged on Toprol-XL and Eliquis. 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 Patient experienced palpitations this morning around lunchtime. Chest discomfort and palpitations without unusual shortness of breath. Dry cough symptoms, unable to expectorate. 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 Compliant with home meds. Some stress at work. Denies inordinate caffeine intake or decongestant intake. Dizziness described as lightheadedness without headache symptoms. Denies fluid retention. Unaware of sleep apnea symptoms despite not wearing CPAP machine for years now post gastric bypass surgery. Patient noted to be in rapid A-fib, heart rate 130s upon arrival at the ER. IV Cardizem bolus administered at the ER. Paroxysmal A-fib on the monitor as per conveyor monitor. 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 Admission Exam Per Admitting Provider GENERAL: Comfortable, pleasant, morbidly obese, looks older than stated age, no respiratory distress SKIN: Normal color, warm HEENT: Ama palpebral conjunctivae, no ptosis, dry buccal mucosa NECK : Supple, short neck, no tenderness CHEST : Decreased breath sounds, scattered expiratory wheezes, no tenderness HEART : Regular, no obvious murmurs ABDOMEN: Some distention, nontender EXTREMITIES : Minimal LE swelling, no LE tenderness, no other conspicuous deformities noted NEUROLOGIC : Coherent, no facial asymmetry, no other gross focality Principal Dx & Hospital Course #1 = Principal Diagnosis (1) Atrial fibrillation with rapid ventricular response: Recurrent A-fib -- Received 1 dose of IV diltiazem in the ER -- Spontaneously converted to sinus rhythm while admitted --Evaluated by cardiology service Recommend to continue usual regimen for now including Eliquis --Follow-up with cardiology clinic in 1 to 2 weeks valvular heart disease (trace MR/TR, TTE 2022) morbid obesity status post gastric bypass RYLIE (currently not on CPAP) DM2 diet-controlled, BSG 200s, well-controlled as of recent hemoglobin A1c of 5.2 last year Discharge to home PCP in 1 week [employer]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 Discharge Exam General- oriented x 3, not in distress, speaks in sentences with no effort or accessory muscle use Eyes- anicteric Neck- no JVD Lungs- clear breath sounds bilaterally, no rales/wheezes Heart- normal rate, regular rhythm; no murmurs Abdomen- normal bowel sounds, nondistended, soft, nontender Extremities- no pretibial edema, no calf tenderness Neuro- alert, oriented x 3; no gross focal neurologic deficits Skin- warm & dry Updated Medication List Medication Instructions Recorded Confirmed Type multivitamin 1 tab PO QAM 04/28/22 07/18/23 History zolpidem 5 mg tablet 5 mg PO HS PRN Sleep 04/28/22 07/18/23 History apixaban 5 mg tablet (Eliquis) 5 mg PO BID #60 tabs 04/29/22 07/18/23 Rx lisinopril 10 mg tablet 10 mg PO QAM #30 tabs 04/29/22 07/18/23 Rx Menopase Supp 2 tabs PO DAILY 07/18/23 07/18/23 History carvedilol 25 mg tablet 25 mg PO BID 07/18/23 07/18/23 History Hospital Stay Data Consultations 07/18/23 23:03 ED Decision to Admit Stat 07/19/23 01:48 Consult Cardiology Routine Diagnostic Imagining Performed Laboratory Results WBC 5.91 K/ul (4.8-10.8) 07/19/23 07:32 RBC 4.21 M/uL (4.20-5.40) 07/19/23 07:32 Hgb 12.9 g/dl (12.0-16.0) 07/19/23 07:32 Hct 38.6 % (37.0-47.0) 07/19/23 07:32 MCV 91.7 fL (80.0-100.0) 07/19/23 07:32 MCH 30.6 pg (25.0-34.0) 07/19/23 07:32 MCHC 33.4 g/dL (32.0-36.0) 07/19/23 07:32 RDW Std Deviation 45.7 fL (36.4-46.3) 07/19/23 07:32 RDW Coeff of Kay 13.6 % (11.5-14.5) 07/19/23 07:32 Plt Count 190 K/uL (130-400) 07/19/23 07:32 MPV 10.5 fL (9.4-12.4) 07/19/23 07:32 Immature Gran % (Auto) 0.3 % 07/19/23 07:32 Neut % (Auto) 59.0 % 07/19/23 07:32 Lymph % (Auto) 23.0 % 07/19/23 07:32 [place] % (Auto) 11.5 % 07/19/23 07:32 Eos % (Auto) 5.2 % 07/19/23 07:32 Baso % (Auto) 1.0 % 07/19/23 07:32 Neut # (Auto) 3.48 K/uL (1.40-6.50) 07/19/23 07:32 Lymph # (Auto) 1.36 K/uL (1.20-3.40) 07/19/23 07:32 [place] # (Auto) 0.68 K/uL (0.11-0.59) H 07/19/23 07:32 Eos # (Auto) 0.31 K/uL (0.00-0.50) 07/19/23 07:32 Baso # (Auto) 0.06 K/uL (0.00-0.20) 07/19/23 07:32 Immature Gran # (Auto) 0.02 K/uL (0.01-0.20) 07/19/23 07:32 PT 12.8 Seconds (9.0-12.0) H 07/18/23 20:57 INR 1.2 (0.9-1.1) H 07/18/23 20:57 APTT 27 Seconds (21-31) 07/18/23 20:57 PTT Ratio 1.0 07/18/23 20:57 Sodium 138 mmol/L (136-145) 07/19/23 07:32 Potassium 4.1 mmol/L (3.5-5.1) 07/19/23 07:32 Chloride 109 mmol/L (98-107) H 07/19/23 07:32 Carbon Dioxide 24 mmol/L (21-32) 07/19/23 07:32 Anion Gap 5 (3-11) 07/19/23 07:32 BUN 16 mg/dl (6-23) 07/19/23 07:32 Creatinine 0.59 mg/dl (0.6-1.2) L 07/19/23 07:32 Est Cr Clr Drug Dosing 173.3 ml/min 07/19/23 07:32 Est GFR ( Amer) 123.0 ml/min 07/19/23 07:32 Est GFR (Non-Af Amer) 106.1 ml/min 07/19/23 07:32 BUN/Creatinine Ratio 27.1 (10-20) H 07/19/23 07:32 Glucose 124 mg/dl (70-99(Fasting)) H 07/19/23 07:32 POC Glucose 122 mg/dl (70-99) H 07/19/23 07:10 Estimat Average Glucose 114 mg/dl 07/19/23 07:32 Hemoglobin A1c 5.6 % (4.5-5.6) 07/19/23 07:32 Calcium 8.4 mg/dl (8.6-10.3) L 07/19/23 07:32 Magnesium 2.0 mg/dl (1.7-2.4) 07/18/23 20:57 Troponin I High Sens 7.8 pg/ml (0-14) 07/18/23 20:57 Lipase 34 U/L (11-82) 07/18/23 20:57 TSH 1.337 uIu/ml (0.300-4.500) 07/18/23 20:57 Adenovirus (PCR) Not Detected (NotDetected) 07/19/23 00:56 B. pertussis DNA (PCR) Not Detected (NotDetected) 07/19/23 00:56 B.parapertussis DNA PCR Not Detected (NotDetected) 07/19/23 00:56 C. pneumoniae DNA (PCR) Not Detected (NotDetected) 07/19/23 00:56 Coronavirus OC43 (PCR) Not Detected (NotDetected) 07/19/23 00:56 Coronavirus HKU1 (PCR) Not Detected (NotDetected) 07/19/23 00:56 Coronavirus 229E (PCR) Not Detected (NotDetected) 07/19/23 00:56 SARS-CoV-2 (PCR) Not Detected (NotDetected) 07/19/23 00:56 Coronavirus NL63 (PCR) Not Detected (NotDetected) 07/19/23 00:56 Human Metapneumovir PCR Not Detected (NotDetected) 07/19/23 00:56 Influenza Type A (PCR) Not Detected (NotDetected) 07/19/23 00:56 Influenza Type B (PCR) Not Detected (NotDetected) 07/19/23 00:56 M. pneumoniae (PCR) Not Detected (NotDetected) 07/19/23 00:56 Parainfluenza 1 (PCR) Not Detected (NotDetected) 07/19/23 00:56 Parainfluenza 2 (PCR) Not Detected (NotDetected) 07/19/23 00:56 Parainfluenza 3 (PCR) Not Detected (NotDetected) 07/19/23 00:56 Parainfluenza 4 (PCR) Not Detected (NotDetected) 07/19/23 00:56 RSV (PCR) Not Detected (NotDetected) 07/19/23 00:56 Entero/Rhino (PCR) Not Detected (NotDetected) 07/19/23 00:56 Impressions Chest X-Ray 07/18/23 20:46 XR chest 1V portable HISTORY: Chest pain, nonspecific COMPARISON: Chest 04/28/2022. FINDINGS: The cardiac silhouette remains mildly enlarged. No pneumothorax. No pleural effusions. The lungs are clear. No evidence for pulmonary edema. IMPRESSION: No significant change compared to the prior study. No acute process. ACT 112: Negative or not required by law. Electronically signed by: Robel Vásquez M.D. 07/19/2023 7:36 AM Pending Results Patient Have Any Pending Studies at Discharge: No Discharge Instructions Given to Patient (Per Discharging Provider) PLEASE RESUME YOUR USUAL MEDICATION REGIMEN. PLEASE CALL YOUR PRIMARY CARE PHYSICIAN OR RETURN TO THE ER IF WITH WORSENING OF SYMPTOMS, INCLUDING CHEST PAIN, SHORTNESS OF BREATH, PALPITATIONS, DIZZINESS, ETC FOLLOW UP WITH PRIMARY CARE PHYSICIAN IN 1 WEEK. FOLLOW UP WITH CORPORATE DIRECTOR DR. WILLIAMSON OUTLINED ABOVE. Total Time Total Time Spent Total Time Spent (In Minutes): 40 minutes
--- NOTE | 2023-07-20 10:12 | Electrocardiogram Report ---
Test Reason : Blood Pressure : / mmHG Vent. Rate : 071 BPM Atrial Rate : 071 BPM P-R Int : 140 ms QRS Dur : 084 ms QT Int : 412 ms P-R-T Axes : 011 022 037 degrees QTc Int : 447 ms Poor data quality, interpretation may be adversely affected Normal sinus rhythm Normal ECG When compared with ECG of 19-JUL-2023 00:35, (unconfirmed) Sinus rhythm has replaced Atrial fibrillation Questionable change in QRS axis Confirmed by Huang Mina ([id number]) on 07/20/2023 10:12:32 AM Referred By: Felipe Maldonado Confirmed By:Juan Mina
--- NOTE | 2023-07-20 10:43 | Electrocardiogram Report ---
Test Reason : Blood Pressure : / mmHG Vent. Rate : 099 BPM Atrial Rate : 000 BPM P-R Int : 000 ms QRS Dur : 086 ms QT Int : 326 ms P-R-T Axes : 000 200 142 degrees QTc Int : 418 ms Likely limb lead reversal Atrial fibrillation Right superior axis deviation Abnormal ECG When compared with ECG of 18-JUL-2023 21:00, (unconfirmed) QRS axis Shifted left Confirmed by Huang Mina ([id number]) on 07/20/2023 10:43:15 AM Referred By: Felipe Maldonado Confirmed By:Juan Mina
--- NOTE | 2023-07-20 10:44 | Electrocardiogram Report ---
Test Reason : Blood Pressure : / mmHG Vent. Rate : 100 BPM Atrial Rate : 000 BPM P-R Int : 000 ms QRS Dur : 084 ms QT Int : 310 ms P-R-T Axes : 000 -04 054 degrees QTc Int : 399 ms Atrial fibrillation Abnormal ECG When compared with ECG of 18-JUL-2023 20:48, No significant change was found Confirmed by Huang Mina ([id number]) on 07/20/2023 10:44:33 AM Referred By: Felipe Maldonado Confirmed By:Juan Mina
== END 2023-07-19 15:20 | disposition home or self-care (01) ==
LOC: 2S 20:38 → ED 20:38 → 2S 07-19 01:42

== ENCOUNTER 2024-09-17 00:32 | Observation (INO) ==
[2024-09-17 01:02] LABS: Hematocrit (blood only) 39.5 % (37.0-47.0); Hemoglobin 13.1 g/dl (12.0-16.0); Immature Granulocytes # (auto) 0.05 K/uL (0.01-0.20); Immature Granulocytes % (auto) 0.4 %; Mean Corpuscular Hemoglobin 30.9 pg (25.0-34.0); Mean Corpuscular Volume 93.2 fL (80.0-100.0); Platelet Count 247 K/uL (130-400); RDW Standard Deviation 46.4 fL (36.4-46.3); Red Blood Count 4.24 M/uL (4.20-5.40); White Blood Count 11.32 K/ul (4.8-10.8)
[2024-09-17] MEDS: SODIUM CHLORIDE 0.9% 1,000 ML IV ONE (01:07)
--- NOTE | 2024-09-17 01:10 | Emergency Department Note ---
Impression & Plan Atrial fibrillation with rapid ventricular response, Chest tightness admit to the [facility] ED Provider Note NAME: STACIE HODGES AGE: 53 SEX: Female INFORMANT: Patient ED PROVIDER(S): Disha Crews DO CHIEF COMPLAINT: Palpitations; dizziness; chest tightness PLAN: Disposition: admit to the [facility] MEDICAL DECISION MAKING: This is a 53-year-old female patient who has a history of paroxysmal A-fib who presents to the emergency department with palpitations, dizziness, chest tightness and exertional shortness of breath. 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 She tried taking her usual nighttime medications but symptoms were not improving. laboratory studies reveal white blood cell count of 11.3. H&H are stable. BUN/creatinine ratio was 24.1 which revealed some signs of dehydration. Troponin was negative. TSH was normal. Patient's blood pressure came up nicely with IV normal saline solution. She went on to receive 2 doses of IV Cardizem which initially controlled her rate but then it rebounded back up into the mid to upper 100s. Patient's A-fib with rapid ventricular response was coupled with chest tightness. [facility] for [facility] care. 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 Vital Signs: reviewed and remarkable for tachycardia Additional History obtained from: Patient's who is at the bedside Chronic Medical/Social Conditions affecting care: atrial fibrillation Prior/ Outside/ External records reviewed: reviewed previous admission to the hospital Differential Diagnosis: Dehydration, medication noncompliance, paroxysmal A-fib, electrolyte abnormality Diagnostics, independently interpreted by me: ECG: atrial fibrillation with rapid ventricular response at a rate of 131. There are occasional PVCs noted as well. There is no ST segment elevation or signs of ischemia. Cardiac Monitoring: A-fib with RVR at a rate of 150 Imaging studies: portable chest x-ray: mild cardiomegaly with no acute pulmonary infiltrates or opacities as per my independent interpretation HPI: 53 year old Female arrives for evaluation of palpitations and chest tightness. 53-year-old female patient who has a history of paroxysmal A-fib who presents to the emergency department with palpitations, dizziness, chest tightness and exertional shortness of breath. 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 She tried taking her usual nighttime medications but symptoms were not improving. PAST MEDICAL HISTORY: See Below, PAST SURGICAL HISTORY: See Below, SOCIAL HISTORY: See Below, HOME MEDICATIONS: See Below ALLERGIES: See Below VITALS: See Below PHYSICAL EXAMINATION: HEENT: Head - normocephalic and atraumatic Pupils are equal, round, and reactive to light. Extraocular eye muscles are intact, and sclera are anicteric. Nose - moist nasal mucosa without discharge. Mouth - moist buccal mucosa. Oropharynx is nonerythematous and there is no tonsillar exudate or edema noted. Neck: Supple; no JVD, nuchal rigidity, cervical lymphadenopathy, or auscultated bruits. Heart: Irregularly irregular rhythm with a tachycardic rate. There is a normal S1 and S2 with no murmurs, clicks, or gallops appreciated. Lungs: Clear to auscultation bilaterally with no wheezes, rales, or rhonchi. Abdomen: Soft, completely nontender, nondistended, with good bowel sounds. There are no palpable pulsatile masses or hepatosplenomegaly. There is no guarding, rigidity, or rebound noted. back: Old contusion noted on the right flank Extremities: No evidence of cyanosis, clubbing, or edema. There are easily palpable peripheral pulses. Skin: warm and dry with good turgor and no rashes. Emergency department treatment: quality assurance monitor body, IV normal saline bolus Emergency Department course:The patient was evaluated in room C-2. A complete history and physical was performed. An order was placed for continuous cardiac monitoring. The patient was in a atrial fibrillation with rapid ventricular response at a rate of 150. Twelve-lead EKG was obtained as described above. Laboratory studies were drawn as above. The patient was bolused with a liter of normal saline solution. Her blood pressure did rebound nicely. She was given a dose of IV Cardizem. Portable chest x-ray was performed. She was given another dose of IV Cardizem. Patient's heart rate has rebounded back up into the 90s and 100s again. patient's troponin was negative but her rate remained elevated. Patient tells me it usually takes between 8-13 hours for her rate to come down or for her to convert back into a normal sinus rhythm. Past Med/Surg History Problem List (Updated 09/17/24 @ 07:37 by Disha Crews DO) Chest tightness (Acute) Paroxysmal atrial fibrillation with RVR Obesity Diabetes mellitus, type II Venous stasis Atrial fibrillation with rapid ventricular response (Acute) SOB (shortness of breath) (Acute) Diabetes (Chronic) HTN (hypertension) (Chronic) Abdominal pain (Acute) Acute pain of right knee (Acute) Gastritis (Acute) Hamstring strain (Acute) Surgical History History of back surgery History of History of gastric bypass Family History Mother A-fib Other Diabetes Social History Smoking Status: Never smoker Second Hand Exposure: No; Do You Dip or Chew Tobacco: No; Hx Alcohol Use: Yes Alcohol type: beer and hard liquor Alcohol Intake Frequency: Monthly or Less Hx Substance Use: No Preferred Language: Urdu Communication Ability: Effective Clam Sorter Required: No Beliefs That Will Affect Care: None Current Living Situation: Spouse Feels Safe at Home: Yes Safety Concerns: Feels Safe At This Time Assistive Devices: None Allergies Allergies Allergy/AdvReac Type Severity Reaction Status Date / Time No Known Allergies Allergy Unverified 07/18/23 22:59 Home Meds Home Medications Medication Instructions Recorded Confirmed multivitamin 1 tab PO QAM 04/28/22 09/17/24 zolpidem 5 mg tablet 10 mg PO HS PRN Insomnia 04/28/22 09/17/24 carvedilol 25 mg tablet 25 mg PO BID 07/18/23 09/17/24 fluoxetine 20 mg capsule 20 mg PO DAILY 09/17/24 09/17/24 semaglutide 1 mg/dose (4 mg/3 mL) 1 mg subcut WK 09/17/24 09/17/24 subcutaneous pen injector (Ozempic) Previous Rx's Medication Instructions Recorded apixaban 5 mg tablet (Eliquis) 5 mg PO BID #60 tabs 04/29/22 lisinopril 10 mg tablet 10 mg PO QAM #30 tabs 04/29/22 cyclobenzaprine 10 mg tablet 10 mg PO Q8H PRN muscle spasm #21 11/11/23 tabs Results & Data (ED) Vital Signs Vital Signs - 24 hr 09/17/24 00:33 09/17/24 00:38 09/17/24 00:38 Temperature 36.3 C L Temperature Source Temporal Artery Scan Pulse Rate 106 H Pulse Rate [Finger] 135 H Pulse Rate from SpO2 Sensor Pulse Rhythm [Finger] Irregular Pulse Strength [Finger] Normal Respiratory Rate 20 20 Respiratory Effort / Characteristics Non-Labored Spontaneous Non-Labored Spontaneous Respiratory Depth Normal Normal Respiratory Pattern Regular Blood Pressure 122/88 Blood Pressure [Right Arm] 102/85 Blood Pressure Mean 99 Blood Pressure Mean [Right Arm] 90 Blood Pressure Position [Right Arm] Lying Pulse Oximetry 98 98 Oxygen Delivery Method Room Air Room Air Room Air Sepsis Recent Fever Within 48 Hours No Sepsis New/Unexplained Change in Mental Status No Sepsis Action Taken by Nursing No Action Required 09/17/24 00:47 09/17/24 00:49 09/17/24 01:00 Temperature Temperature Source Pulse Rate 150 H 135 H 144 H Pulse Rate [Finger] Pulse Rate from SpO2 Sensor Pulse Rhythm [Finger] Pulse Strength [Finger] Respiratory Rate 21 18 Respiratory Effort / Characteristics Respiratory Depth Respiratory Pattern Blood Pressure 102/85 101/84 Blood Pressure [Right Arm] Blood Pressure Mean 89 95 Blood Pressure Mean [Right Arm] Blood Pressure Position [Right Arm] Pulse Oximetry 98 98 Oxygen Delivery Method Sepsis Recent Fever Within 48 Hours Sepsis New/Unexplained Change in Mental Status Sepsis Action Taken by Nursing 09/17/24 02:00 09/17/24 02:30 09/17/24 03:00 Temperature Temperature Source Pulse Rate 106 H 102 H Pulse Rate [Finger] 125 H Pulse Rate from SpO2 Sensor 83 Pulse Rhythm [Finger] Irregular Pulse Strength [Finger] Normal Respiratory Rate 18 15 20 Respiratory Effort / Characteristics Non-Labored Respiratory Depth Normal Respiratory Pattern Regular Blood Pressure 121/77 141/100 H Blood Pressure [Right Arm] 140/100 Blood Pressure Mean 80 113 Blood Pressure Mean [Right Arm] 113 Blood Pressure Position [Right Arm] Lying Pulse Oximetry 98 96 97 Oxygen Delivery Method Room Air Sepsis Recent Fever Within 48 Hours Sepsis New/Unexplained Change in Mental Status Sepsis Action Taken by Nursing 09/17/24 03:00 09/17/24 03:30 Temperature Temperature Source Pulse Rate 100 H 108 H Pulse Rate [Finger] Pulse Rate from SpO2 Sensor 82 Pulse Rhythm [Finger] Pulse Strength [Finger] Respiratory Rate 17 17 Respiratory Effort / Characteristics Respiratory Depth Respiratory Pattern Blood Pressure 140/100 131/83 Blood Pressure [Right Arm] Blood Pressure Mean 108 99 Blood Pressure Mean [Right Arm] Blood Pressure Position [Right Arm] Pulse Oximetry 97 98 Oxygen Delivery Method Sepsis Recent Fever Within 48 Hours Sepsis New/Unexplained Change in Mental Status Sepsis Action Taken by Nursing Laboratory Data 09/17/24 00:50 09/17/24 00:50 Lab Results 09/17/24 09/17/24 Range/Units 00:50 00:54 WBC 11.32 H (4.8-10.8) K/ul RBC 4.24 (4.20-5.40) M/uL Hgb 13.1 (12.0-16.0) g/dl POC Hgb 13.3 (12.0-16.0) g/dl Hct 39.5 (37.0-47.0) % POC Hct 39 (37-47) % MCV 93.2 (80.0-100.0) fL MCH 30.9 (25.0-34.0) pg MCHC 33.2 (32.0-36.0) g/dL RDW Std Deviation 46.4 H (36.4-46.3) fL RDW Coeff of Kay 13.7 (11.5-14.5) % Plt Count 247 (130-400) K/uL MPV 10.2 (9.4-12.4) fL Immature Gran % (Auto) 0.4 % Neut % (Auto) 66.1 % Lymph % (Auto) 17.6 % [place] % (Auto) 11.6 % Eos % (Auto) 3.6 % Baso % (Auto) 0.7 % Neut # (Auto) 7.48 H (1.40-6.50) K/uL Lymph # (Auto) 1.99 (1.20-3.40) K/uL [place] # (Auto) 1.31 H (0.11-0.59) K/uL Eos # (Auto) 0.41 (0.00-0.50) K/uL Baso # (Auto) 0.08 (0.00-0.20) K/uL Immature Gran # (Auto) 0.05 (0.01-0.20) K/uL POC Sodium 141 (135-144) mmol/L Sodium 139 (136-145) mmol/L POC Potassium 3.7 (3.3-5.0) mmol/L Potassium 3.8 (3.5-5.1) mmol/L POC Chloride 112 (101-112) mmol/L Chloride 110 H (98-107) mmol/L Carbon Dioxide 20 L (21-32) mmol/L POC Total CO2 17 L (24-31) mmol/L Anion Gap 9 (3-11) POC Anion Gap 17.0 (16-25) mmol/L POC BUN 19 H (7-18) mg/dl BUN 20 (6-23) mg/dl Creatinine 0.83 (0.6-1.2) mg/dl POC Creatinine 0.9 (0.6-1.3) mg/dl Est Cr Clr Drug Dosing Not Reportable eGFR 84.77 BUN/Creatinine Ratio 24.1 H (10-20) Glucose 105 H (70-99(Fasting)) mg/dl POC Glucose (other) 102 H (70-99) mg/dl Calcium 9.0 (8.6-10.3) mg/dl POC Ioniz Calcium See 1.17 (1.12-1.32) mmol/l Magnesium 2.0 (1.7-2.4) mg/dl Total Bilirubin 0.9 (0.2-1.0) mg/dl AST 16 (13-39) U/L ALT 15 (7-52) U/L Alkaline Phosphatase 76 (34-104) U/L Troponin I High Sens 8.7 (0-14) pg/ml Total Protein 7.1 (6.0-8.3) gm/dl Albumin 3.8 (3.4-5.0) gm/dl Globulin 3.3 (2.5-4.0) gm/dl Albumin/Globulin Ratio 1.2 (0.9-2) TSH 1.496 (0.300-4.500) uIu/ml Administered Medications Potassium Chloride/Sodium Chloride (Normal Saline W/20 Meq Kcl) 20 meq in 1,000 mls @ 100 mls/hr IV .Q10H ONE Stop: 09/17/24 14:14 Last Admin: 09/17/24 05:11 Dose: 100 mls/hr Documented By: FREDY Insulin Aspart (Insulin Aspart Per Unit Charge) 0 units SC ACHS GRAYSON Stop: 10/17/24 05:44 Last Admin: 09/17/24 06:29 Dose: Not Given Documented By: FREDY Discontinued Medications Diltiazem HCl (Diltiazem Hcl 5 Mg/Ml 5 Ml Vial) 10 mg IV NOW STA Stop: 09/17/24 01:42 Last Admin: 09/17/24 01:50 Dose: 10 mg Documented By: KAYLAN Co-signed By: ASCENCION Diltiazem HCl (Diltiazem Hcl 5 Mg/Ml 5 Ml Vial) 10 mg IV NOW STA Stop: 09/17/24 02:56 Last Admin: 09/17/24 03:02 Dose: 10 mg Documented By: KAYLAN Co-signed By: ASCENCION Sodium Chloride (Nss) 1,000 mls @ 999 mls/hr IV .Q1H1M ONE Stop: 09/17/24 02:03 Last Infusion: 09/17/24 02:08 Dose: Infused Documented By: Admin: 09/17/24 01:07 Dose: 999 mls/hr Documented By: KAYLAN Metoprolol Tartrate (Metoprolol Tartrate 1 Mg/Ml Vial) 2.5 mg IV NOW STA Stop: 09/17/24 04:06 Last Admin: 09/17/24 04:19 Dose: 2.5 mg Documented By: KAYLAN Metoprolol Tartrate (Metoprolol Tartrate 1 Mg/Ml Vial) 2.5 mg IV NOW STA Stop: 09/17/24 05:42 Last Admin: 09/17/24 06:07 Dose: 2.5 mg Documented By: FREDY Imaging Data Radiologist's Impression: Chest X-Ray 09/17/24 01:42 EXAM: XR chest 1V portable CLINICAL HISTORY: A-fib. TECHNIQUE: An X-ray image of the chest is obtained in AP projection. COMPARISON: 07/18/2023 CR FINDINGS: Pulmonary Parenchyma: Lungs are clear bilaterally. No evidence of consolidation, collapse, or focal opacities. No pulmonary nodules are identified. No evidence of pleural effusion or pleural thickening. Heart and Mediastinum: Heart size is mildly enlarged. No mediastinal widening or masses. No hilar or mediastinal lymphadenopathy. Bony Thorax: Bony thorax appears intact without fractures or deformities. Soft Tissues: Soft tissues overlying the chest wall are unremarkable. IMPRESSION: No acute cardiopulmonary abnormalities are identified. Mild cardiomegaly. No interval changes. Electronically signed by Thanh Fiore 09-17-2024 02:55 AM Discharge Plan Visit Data Chief Complaint: Arrhythmia/Palpitations Stated Complaint: AFIB? ED Provider: Disha Crews Discharge Problem: Atrial fibrillation with rapid ventricular response, Chest tightness Patient Disposition: Admitted As Inpatient Condition: Serious Discharge Instructions Interventions: ED Discharge Assessment Last Done: 09/17/24 04:39
[2024-09-17 01:20] LABS: Alanine Aminotransferase 15 U/L (7-52); Albumin Globulin Ratio 1.2 (0.9-2); Alkaline Phosphatase 76 U/L (34-104); Anion Gap 9 (3-11); Bilirubin,Total 0.9 mg/dl (0.2-1.0); Blood Urea Nitrogen 20 mg/dl (6-23); Calcium 9.0 mg/dl (8.6-10.3); Carbon Dioxide 20 mmol/L (21-32); Chloride 110 mmol/L (98-107); Globulin 3.3 gm/dl (2.5-4.0); Glucose 105 mg/dl (70-99(Fasting)); Magnesium 2.0 mg/dl (1.7-2.4); Potassium 3.8 mmol/L (3.5-5.1); Sodium 139 mmol/L (136-145); Total Protein 7.1 gm/dl (6.0-8.3)
[2024-09-17 01:36] LABS: Thyroid Stimulating Hormone 1.496 uIu/ml (0.300-4.500)
--- NOTE | 2024-09-17 02:56 | XRay Report ---
EXAM: XR chest 1V portable CLINICAL HISTORY: A-fib. TECHNIQUE: An X-ray image of the chest is obtained in AP projection. COMPARISON: 07/18/2023 CR FINDINGS: Pulmonary Parenchyma: Lungs are clear bilaterally. No evidence of consolidation, collapse, or focal opacities. No pulmonary nodules are identified. No evidence of pleural effusion or pleural thickening. Heart and Mediastinum: Heart size is mildly enlarged. No mediastinal widening or masses. No hilar or mediastinal lymphadenopathy. Bony Thorax: Bony thorax appears intact without fractures or deformities. Soft Tissues: Soft tissues overlying the chest wall are unremarkable. IMPRESSION: No acute cardiopulmonary abnormalities are identified. Mild cardiomegaly. No interval changes. Electronically signed by Thanh Fiore 09-17-2024 02:55 AM
--- NOTE | 2024-09-17 03:46 | History & Physical Report ---
Date of Service September 17, 2024 Assessment & Plan (1) Paroxysmal atrial fibrillation with RVR: Plan: Assessment and plan below following discussion of case with ED provider and reviewing patient history/pertinent normal/abnormal diagnostic test results. Atrial fibrillation with rapid ventricular response: Recurrent A-fib Patient on Eliquis Troponin elevation secondary above valvular heart disease (trace MR/TR, TTE 2022) hypertension, stable morbid obesity status post gastric bypass RYLIE (currently not on CPAP) DM2 on Ozempic, well-controlled as of recent hemoglobin A1c 5.6 last year OBS PCU IV Lopressor 1 dose, continue home Coreg, consider switching to oral Lopressor if still uncontrolled. Cardiology consult Re: Recurrent A-fib NPO for possible cardioversion if A-fib persistent. ISS BG goal 1 10-1 40, update hemoglobin A1c DVT prophylaxis. Eliquis Full code Text document was generated using [employer] voice recognition software. It may contain grammatical or spelling errors. Kindly contact undersigned for clarification of any documentation item in question. History of Present Illness Chief Complaint: Chest tightness, palpitations Primary Care Provider: [facility] History obtained from patient and records. Medical history significant for PAF on Eliquis, valvular heart disease (trace MR/TR, TTE 2022), hypertension, morbid obesity status post gastric bypass, RYLIE (currently not on CPAP), DM2 on Ozempic, mood disorder. Last confinement 2023 for recurrent A-fib status post spontaneous conversion to NSR. Around 10 PM last night, patient had sudden onset chest tightness associated palpitations. Chest tightness going across her chest and extending to her neck. No SOB or cough symptoms. Compliant with home medications. Denies unusual stress. Thinks she may not have drank water as much as she should yesterday. Heart rate 150s. 2 IV Cardizem boluses administered at the ER. Chest tightness currently relieved. 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 Allergies Allergy/AdvReac Type Severity Reaction Status Date / Time No Known Allergies Allergy Unverified 07/18/23 22:59 Home Medications Medication Instructions Recorded Confirmed Type multivitamin 1 tab PO QAM 04/28/22 09/17/24 History zolpidem 5 mg tablet 10 mg PO HS PRN Insomnia 04/28/22 09/17/24 History apixaban 5 mg tablet (Eliquis) 5 mg PO BID #60 tabs 04/29/22 09/17/24 Rx lisinopril 10 mg tablet 10 mg PO QAM #30 tabs 04/29/22 09/17/24 Rx carvedilol 25 mg tablet 25 mg PO BID 07/18/23 09/17/24 History cyclobenzaprine 10 mg tablet 10 mg PO Q8H PRN muscle spasm #21 11/11/23 09/17/24 Rx tabs fluoxetine 20 mg capsule 20 mg PO DAILY 09/17/24 09/17/24 History semaglutide 1 mg/dose (4 mg/3 mL) 1 mg subcut WK 09/17/24 09/17/24 History subcutaneous pen injector (Ozempic) Past Med/Surg History Problem List (Updated 09/17/24 @ 07:37 by Disha Crews DO) Chest tightness (Acute) Paroxysmal atrial fibrillation with RVR Obesity Diabetes mellitus, type II Venous stasis Atrial fibrillation with rapid ventricular response (Acute) SOB (shortness of breath) (Acute) Diabetes (Chronic) HTN (hypertension) (Chronic) Abdominal pain (Acute) Acute pain of right knee (Acute) Gastritis (Acute) Hamstring strain (Acute) Surgical History History of back surgery History of History of gastric bypass Family History Mother A-fib Other Diabetes Social History Smoking Status: Never smoker Second Hand Exposure: No; Do You Dip or Chew Tobacco: No; Hx Alcohol Use: Yes Alcohol type: beer and hard liquor Alcohol Intake Frequency: Monthly or Less Hx Substance Use: No Preferred Language: Afghan Communication Ability: Effective 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 Beliefs That Will Affect Care: None Current Living Situation: Spouse Feels Safe at Home: Yes Safety Concerns: Feels Safe At This Time Assistive Devices: None Review of Systems Review of Systems: As per HPI, all other systems reviewed and negative Physical Exam Physical Exam: GENERAL: Comfortable, pleasant, morbidly obese, no respiratory distress SKIN: Normal color, warm HEENT: [place] palpebral conjunctivae, no ptosis, dry buccal mucosa NECK : Supple, short neck, no tenderness CHEST : Decreased breath sounds, no tenderness HEART : Irregular, tachycardic, no obvious murmurs ABDOMEN: Some distention, nontender EXTREMITIES : Chronic bilateral LE swelling, no LE tenderness, no other conspicuous deformities noted NEUROLOGIC : Coherent, no facial asymmetry, no other gross focality Results & Data Results & Data Vital Signs (Past 12 Hours) Vital Signs Temp Pulse Pulse Resp BP BP Pulse Ox 09/17/24 03:00 125 H 20 140/100 97 09/17/24 00:47 150 H 09/17/24 00:38 135 H 20 102/85 98 09/17/24 00:38 09/17/24 00:33 36.3 C L 106 H 20 122/88 98 O2 Del Method 09/17/24 03:00 Room Air 09/17/24 00:47 09/17/24 00:38 Room Air 09/17/24 00:38 Room Air 09/17/24 00:33 Room Air Laboratory Results Laboratory Results WBC 11.32 K/ul (4.8-10.8) H 09/17/24 00:50 RBC 4.24 M/uL (4.20-5.40) 09/17/24 00:50 Hgb 13.1 g/dl (12.0-16.0) 09/17/24 00:50 Hct 39.5 % (37.0-47.0) 09/17/24 00:50 MCV 93.2 fL (80.0-100.0) 09/17/24 00:50 MCH 30.9 pg (25.0-34.0) 09/17/24 00:50 MCHC 33.2 g/dL (32.0-36.0) 09/17/24 00:50 RDW Std Deviation 46.4 fL (36.4-46.3) H 09/17/24 00:50 RDW Coeff of Kay 13.7 % (11.5-14.5) 09/17/24 00:50 Plt Count 247 K/uL (130-400) 09/17/24 00:50 MPV 10.2 fL (9.4-12.4) 09/17/24 00:50 Immature Gran % (Auto) 0.4 % 09/17/24 00:50 Neut % (Auto) 66.1 % 09/17/24 00:50 Lymph % (Auto) 17.6 % 09/17/24 00:50 [place] % (Auto) 11.6 % 09/17/24 00:50 Eos % (Auto) 3.6 % 09/17/24 00:50 Baso % (Auto) 0.7 % 09/17/24 00:50 Neut # (Auto) 7.48 K/uL (1.40-6.50) H 09/17/24 00:50 Lymph # (Auto) 1.99 K/uL (1.20-3.40) 09/17/24 00:50 [place] # (Auto) 1.31 K/uL (0.11-0.59) H 09/17/24 00:50 Eos # (Auto) 0.41 K/uL (0.00-0.50) 09/17/24 00:50 Baso # (Auto) 0.08 K/uL (0.00-0.20) 09/17/24 00:50 Immature Gran # (Auto) 0.05 K/uL (0.01-0.20) 09/17/24 00:50 Sodium 139 mmol/L (136-145) 09/17/24 00:50 Potassium 3.8 mmol/L (3.5-5.1) 09/17/24 00:50 Chloride 110 mmol/L (98-107) H 09/17/24 00:50 Carbon Dioxide 20 mmol/L (21-32) L 09/17/24 00:50 Anion Gap 9 (3-11) 09/17/24 00:50 BUN 20 mg/dl (6-23) 09/17/24 00:50 Creatinine 0.83 mg/dl (0.6-1.2) 09/17/24 00:50 Est Cr Clr Drug Dosing Not Reportable 09/17/24 00:50 eGFR 84.77 09/17/24 00:50 BUN/Creatinine Ratio 24.1 (10-20) H 09/17/24 00:50 Glucose 105 mg/dl (70-99(Fasting)) H 09/17/24 00:50 Calcium 9.0 mg/dl (8.6-10.3) 09/17/24 00:50 Magnesium 2.0 mg/dl (1.7-2.4) 09/17/24 00:50 Total Bilirubin 0.9 mg/dl (0.2-1.0) 09/17/24 00:50 AST 16 U/L (13-39) 09/17/24 00:50 ALT 15 U/L (7-52) 09/17/24 00:50 Alkaline Phosphatase 76 U/L (34-104) 09/17/24 00:50 Troponin I High Sens 8.7 pg/ml (0-14) 09/17/24 00:50 Total Protein 7.1 gm/dl (6.0-8.3) 09/17/24 00:50 Albumin 3.8 gm/dl (3.4-5.0) 09/17/24 00:50 Globulin 3.3 gm/dl (2.5-4.0) 09/17/24 00:50 Albumin/Globulin Ratio 1.2 (0.9-2) 09/17/24 00:50 TSH 1.496 uIu/ml (0.300-4.500) 09/17/24 00:50 Impressions Chest X-Ray 09/17/24 01:42 EXAM: XR chest 1V portable CLINICAL HISTORY: A-fib. TECHNIQUE: An X-ray image of the chest is obtained in AP projection. COMPARISON: 07/18/2023 CR FINDINGS: Pulmonary Parenchyma: Lungs are clear bilaterally. No evidence of consolidation, collapse, or focal opacities. No pulmonary nodules are identified. No evidence of pleural effusion or pleural thickening. Heart and Mediastinum: Heart size is mildly enlarged. No mediastinal widening or masses. No hilar or mediastinal lymphadenopathy. Bony Thorax: Bony thorax appears intact without fractures or deformities. Soft Tissues: Soft tissues overlying the chest wall are unremarkable. IMPRESSION: No acute cardiopulmonary abnormalities are identified. Mild cardiomegaly. No interval changes. Electronically signed by Thanh Fiore 09-17-2024 02:55 AM Diagnostic Findings EKG as per my interpretation :Rate 130, A-fib, LAD, LAFB, no ischemia, PVCs
[2024-09-17] MEDS ORDERED: PROMETHAZINE 6.25 MG/50.25 ML BAG IV PRN (04:08)
[2024-09-17] MEDS ORDERED: LORazepam 0.5 MG TAB PO PRN (04:08)
[2024-09-17] MEDS ORDERED: ZOLPIDEM TARTRATE 5 MG TAB PO PRN (04:08)
[2024-09-17] MEDS ORDERED: CYCLOBENZAPRINE HCL 10 MG TAB PO PRN (04:08)
[2024-09-17] MEDS ORDERED: MoRPHine SULFATE 4 MG/ML 1 ML CARP\\VIAL IV PRN (04:08)
[2024-09-17] MEDS ORDERED: ACETAMINOPHEN 325 MG TAB PO PRN (04:10)
[2024-09-17] MEDS: METOPROLOL TARTRATE 1 MG/ML VIAL IV STA ×2 (04:19→06:07)
[2024-09-17] MEDS ORDERED: NITROGLYCERIN SL 0.4 MG/TAB TAB SL PRN (04:32)
[2024-09-17] MEDS: NSS + 20MEQ KCL 20 MEQ/1,000 ML BAG IV ONE (05:11)
[2024-09-17 05:17] LABS: Partial Thromboplastin Time 29 Seconds (21-31)
[2024-09-17] MEDS ORDERED: GLUCOSE 10 TAB/TUBE PO PRN (05:43)
[2024-09-17] MEDS ORDERED: DEXTROSE 50% 50 ML SYRINGE IV PRN (05:43)
[2024-09-17] MEDS ORDERED: GLUCOSE 40% GEL 15 GM TUBE PO PRN (05:43)
[2024-09-17] MEDS ORDERED: GLUCAGON FOR INJ 1 MG VIAL SQ PRN (05:43)
[2024-09-17] MEDS ORDERED: CARBOHYDRATES FOR HYPOGLYCEMIA PO PRN (05:43)
[2024-09-17] MEDS: INSULIN ASPART PER UNIT CHARGE SC SCH (06:29)
[2024-09-17 07:37] LABS: Hemoglobin A1C 5.4 % (4.5-5.6)
[2024-09-17] MEDS: APIXABAN 5 MG TABLET PO SCH (07:37)
[2024-09-17] MEDS: MULTIVITAMIN TAB PO SCH (07:37)
--- NOTE | 2024-09-17 08:31 | Cardiology Consultation ---
Date of Consultation September 17, 2024 Assessment & Plan (1) Paroxysmal atrial fibrillation with RVR: (2) HTN (hypertension): (3) Diabetes mellitus, type II: (4) Sleep apnea, obstructive: Plan Assessment: Patient is a 53 yo female with medical history that includes paroxysmal Afib on Eliquis, HTN, obesity, diabetes mellitus type 2, s/p gastric bypass, and sleep apnea. She presented to the ER at [facility] this morning at 1 am with extreme dizziness and palpitations. EKG showed Afib RVR with rate 131. She received IV Cardizem 10 mg x2 doses, Metoprolol Tartrate, and IV fluids in the ER. Rates improved temporarily but then rebounded. Cardiology services requested for assessment and recommendations. Review of records shows previous ER visit and admission at [facility] in July 2023 with Afib with RVR, HR 130s, symptomatic with chest tightness and palpitations. She was treated with IV Diltiazem and self converted to NSR. Patient states she follows with [facility] cardiology in [place], [place]. No outpatient documentation available. Will request records. 1. Paroxysmal Afib with RVR, on Eliquis 2. Hypertension 3. s/p gastric bypass 4. RYLIE, not on CPAP 5. Diabetes mellitus type 2 -Patient with no acute cardiac complaints. -Echo 09/17/24: LVEF 65-70%l Left atrium mildly dilated. No significant tricuspid regurgitation. Small loculated left lateral pericardial effusion. Tamponade absent. -EKG 09/17/24: AFib with RVR with PVCs or aberrantly conducted complexes. HR 131 bpm, QTc 457 -Echo 09/17/24: LVEF 65-70%l Left atrium mildly dilated. No significant tricuspid regurgitation. Small loculated left lateral pericardial effusion. Tamponade absent. -CXR 09/17/24: No acute cardiopulmonary abnormalities identified. Mild cardiomegaly. -Telemetry reviewed: Afib with PVCs, HR 120s-130s. Overnight Afib, HR 100s, peak HR 110, no acute events. -Labs show Trop HS 40 (39.4, 8.7), TSH WNL, WBC 11.3 -Paroxysmal Afib likely due to stressors and dehydration. Symptoms and provocating factors seem similar to her previous episodes. Patient asymptomatic at this time. -Patient with obstructive sleep apnea, not on CPAP, which may be contributing to her paroxysmal Afib and symptoms. -Give IV Diltiazem (Cardizem) 5mg bolus at this time. -Start Diltiazem drip -Start oral Metoprolol Tartrate 25 mg four times daily. -Outpatient on Coreg (dose?) twice daily. Continue to hold for now. -Continue Lisinopril 10 mg daily for hypertension. -Plan for cardioversion if Afib does not convert with medical management. Case discussed with blender/braze applicator Dr. Hoffman. Further recommendations pending his evaluation and assessment. I spent a total of 60 minutes on the date of service in preparation, delivery, and documentation of the care provided to this patient, excluding any time spent in the performance of separately billed services. Jade Vera, DILCIAC Department of Cardiology, [facility] This chart was completed in part utilizing Speech Voice Recognition Software. Grammatical errors, random word insertions, pronoun errors, and incomplete sent ences are an occasional consequence of this system due to software limitations, ambient noise, and hardware issues. Any formal questions or concerns about the content, text, or information contained within the body of this dictation should be directly addressed to the provider for clarification. Supervising Physician Co-Signing Physician Notes Attending attestation: Case reviewed with the advanced practitioner. I have personally performed a history and physical examination on the patient. I have reviewed the advanced practitioner's documentation on the date of service referenced in note, and I agree with, and take responsibility for the plan of care. Subjective: Patient notes onset of palpitations and dizziness at around 10 PM after she had been outside in the heat and humidity on an animal rescue. She has not been seen cardiology follow-up since her admission for atrial fibrillation in 2023, but states that she has been adherent to carvedilol and Eliquis which has been refilled by her PCP. She notes brief occasional palpitations but this is her longest recent atrial fibrillation episode. Other episodes or rare and she has always gone back into sinus rhythm within about 12 or 13 hours. Exam: Cardiovascular: Irregular rhythm, no murmurs, no edema Data: Telemetry reveals atrial fibrillation with rapid ventricular response and the rate of 120 to 130 bpm during my assessment. Echocardiogram as noted above, normal LVEF, Small loculated left lateral pericardial effusion without tamponade. Impression/ Plan: Recurrent atrial fibrillation with rapid ventricular response Small loculated pericardial effusion * Diltiazem infusion * metoprolol tartrate 25 mg by mouth 4 times daily * Eliquis 5 mg by mouth twice daily * Agree with IV fluid resuscitation. Continue prehospital treatment lisinopril. * Discussed options of ongoing medication therapy versus direct-current cardioversion. Patient favors a trial of medication therapy. Will therefore advance her diet today. When hospitalized in 2023 she converted to sinus rhythm on IV diltiazem. Will make patient n.p.o. after midnight tomorrow and will consider cardioversion if her atrial fibrillation is refractory to medication therapy. Will favor metoprolol for now over prior to hospital treated with carvedilol. I spent a total of 20 minutes coordinating, documenting, and providing care for this patient excluding time spent in the performance of separately billed services or time spent by another provider. Yo Hoffman DO History of Present Illness Reason for Consultation: Atrial fibrillation Requesting Physician: Adonis delacruz Attending Physician: Karol Ortez MD History of Present Illness Patient is a 53 yo female with medical history that includes paroxysmal Afib on Eliquis, HTN, obesity, diabetes mellitus type 2, s/p gastric bypass, and sleep apnea. She presented to the ER at [facility] this morning at 1 am with extreme dizziness and palpitations. EKG showed Afib RVR with rate 131. She received IV Cardizem 10 mg x2 doses, Metoprolol Tartrate, and IV fluids in the ER. Rates improved temporarily but then rebounded. Cardiology services requested for assessment and recommendations. Review of records shows previous ER visit and admission at [facility] in July 2023 with Afib with RVR, HR 130s, symptomatic with chest tightness and palpitations. She was treated with IV Diltiazem and self converted to NSR. Echo 09/17/24: LVEF 65-70%l Left atrium mildly dilated. No significant tricuspid regurgitation. Small loculated left lateral pericardial effusion. Tamponade absent. At time of evaluation this morning, patient is resting comfortably in bed. She denies chest pain, SOB, palpitations/fluttering, dizziness, lightheadedness, syncope. Denies fever, chills, hematuria, melena, or any other issues. 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 On 09/16/24 she was called to rescue a dog. She states she had to yessy the dog up a mountainside during temp in the high 80s. She states she was drenched in the heat and dehydrated. At 10 pm last night she was fatigued, extremely dizzy, weak, and felt heart palpitations. She states these symptoms were the same as her previous episode of Afib, thus prompted her to seek evaluation at the ER at [facility]. She states she felt chest tightness, mid-sternal region that lasted for several minutes and subsided spontaneously. She describes the sensation as "achy" and was felt in her chest, up to her neck. Did not take medication to alleviate the symptoms. Denies chest pain, SOB, syncope, near syncope. She states she takes Eliquis twice daily, Coreg daily, Lisinopril daily, and is compliant with home medication use. Telemetry reviewed: Afib with PVCs, HR 120s-130s. Overnight Afib, HR 100s, peak HR 110, no acute events. Allergies Allergy/AdvReac Type Severity Reaction Status Date / Time No Known Allergies Allergy Unverified 07/18/23 22:59 Home Medications Medication Instructions Recorded Confirmed Type multivitamin 1 tab PO QAM 04/28/22 09/17/24 History zolpidem 5 mg tablet 10 mg PO HS PRN Insomnia 04/28/22 09/17/24 History apixaban 5 mg tablet (Eliquis) 5 mg PO BID #60 tabs 04/29/22 09/17/24 Rx lisinopril 10 mg tablet 10 mg PO QAM #30 tabs 04/29/22 09/17/24 Rx carvedilol 25 mg tablet 25 mg PO BID 07/18/23 09/17/24 History cyclobenzaprine 10 mg tablet 10 mg PO Q8H PRN muscle spasm #21 11/11/23 09/17/24 Rx tabs fluoxetine 20 mg capsule 20 mg PO DAILY 09/17/24 09/17/24 History semaglutide 1 mg/dose (4 mg/3 mL) 1 mg subcut WK 09/17/24 09/17/24 History subcutaneous pen injector (Ozempic) Patient History Surgical History History of back surgery History of History of gastric bypass Family History Mother A-fib Other Diabetes Social History Smoking Status: Never smoker Second Hand Exposure: No; Do You Dip or Chew Tobacco: No; Hx Alcohol Use: Yes Alcohol type: beer and hard liquor Alcohol Intake Frequency: Monthly or Less Hx Substance Use: No Preferred Language: Georgian Communication Ability: Effective Overhead Garage Door Hanger Required: No Beliefs That Will Affect Care: None Current Living Situation: Spouse Feels Safe at Home: Yes Safety Concerns: Feels Safe At This Time Assistive Devices: None Review of Systems Review of Systems: All systems reviewed & are unremarkable except as noted in HPI & below Physical Exam Constitutional: + obese; no acute distress Eyes: PERRL, conjunctivae normal, anicteric sclerae Neck: normal visual inspection and trachea midline Respiratory: normal respiratory effort, lungs clear to auscultation Cardiovascular: Rate/Rhythm: + irregularly irregular Heart Sounds: no murmur Vessels: no JVD and no carotid bruit Extremities: no edema Gastrointestinal (Abdomen): normal bowel sounds, soft, nontender, no hepatosplenomegaly Musculoskeletal: Head/Neck/Chest: + head abnormal to inspection and normocephalic Skin: + wound (Right lower back hematoma) and + dry skin Bilateral LE chronic venous stasis Neurologic: PERRL, EOMI, accommodation nl, no face palsy, no dysarthria Psychiatric: A+Ox3, euthymic affect Results & Data Vital Signs (Past 12 Hours) Vital Signs Temp Pulse Pulse Resp BP BP Pulse Ox 09/17/24 07:27 36.4 C L 100 H 18 143/87 H 94 09/17/24 06:22 116 H 09/17/24 06:07 131 H 114/77 09/17/24 05:17 37.3 C 109 H 16 149/90 H 97 09/17/24 05:02 89 09/17/24 04:39 103 H 20 98 09/17/24 04:19 112 H 126/106 H 09/17/24 03:30 108 H 17 131/83 98 09/17/24 03:00 100 H 17 140/100 97 09/17/24 03:00 125 H 20 140/100 97 09/17/24 02:30 102 H 15 141/100 H 96 09/17/24 02:00 106 H 18 121/77 98 09/17/24 01:00 144 H 18 101/84 98 09/17/24 00:49 135 H 21 102/85 98 09/17/24 00:47 150 H 09/17/24 00:38 135 H 20 102/85 98 09/17/24 00:38 09/17/24 00:33 36.3 C L 106 H 20 122/88 98 O2 Del Method 09/17/24 07:27 Room Air 09/17/24 06:22 09/17/24 06:07 09/17/24 05:17 Room Air 09/17/24 05:02 09/17/24 04:39 Room Air 09/17/24 04:19 09/17/24 03:30 09/17/24 03:00 09/17/24 03:00 Room Air 09/17/24 02:30 09/17/24 02:00 09/17/24 01:00 09/17/24 00:49 09/17/24 00:47 09/17/24 00:38 Room Air 09/17/24 00:38 Room Air 09/17/24 00:33 Room Air Laboratory Results Cardiac Enzymes 09/17/24 09/17/24 09/17/24 Range/Units 00:50 04:27 05:24 AST 16 (13-39) U/L Troponin I High Sens 8.7 39.4 H D 40.0 H (0-14) pg/ml Coagulation 09/17/24 Range/Units 04:27 APTT 29 (21-31) Seconds CBC 09/17/24 Range/Units 00:50 WBC 11.32 H (4.8-10.8) K/ul RBC 4.24 (4.20-5.40) M/uL Hgb 13.1 (12.0-16.0) g/dl Hct 39.5 (37.0-47.0) % Plt Count 247 (130-400) K/uL Neut # (Auto) 7.48 H (1.40-6.50) K/uL Lymph # (Auto) 1.99 (1.20-3.40) K/uL [place] # (Auto) 1.31 H (0.11-0.59) K/uL Eos # (Auto) 0.41 (0.00-0.50) K/uL Baso # (Auto) 0.08 (0.00-0.20) K/uL Comprehensive Metabolic Panel 09/17/24 Range/Units 00:50 Sodium 139 (136-145) mmol/L Potassium 3.8 (3.5-5.1) mmol/L Chloride 110 H (98-107) mmol/L Carbon Dioxide 20 L (21-32) mmol/L BUN 20 (6-23) mg/dl Creatinine 0.83 (0.6-1.2) mg/dl Glucose 105 H (70-99(Fasting)) mg/dl Calcium 9.0 (8.6-10.3) mg/dl AST 16 (13-39) U/L ALT 15 (7-52) U/L Alkaline Phosphatase 76 (34-104) U/L Total Protein 7.1 (6.0-8.3) gm/dl Albumin 3.8 (3.4-5.0) gm/dl Intake and Output 09/16/24 09/17/24 09/17/24 22:59 06:59 14:59 Intake Total 1000 / 1000 Balance 1000 / 1000 Intake: IV 1000 / 1000 Sodium Chloride 0.9% 1,000 ml @ 1000 / 1000 999 mls/hr IV .Q1H1M ONE Rx#: [id number] Other: Other Intake Source NPO # Unmeasured Voids 1 Weight 125.7 kg Weight Measurement Method Standing Scale Diagnostic Findings EKG 09/17/24: AFib with RVR with PVCs or aberrantly conducted complexes. HR 131 bpm, QTc 457 Echo 09/17/24: LVEF 65-70%l Left atrium mildly dilated. No significant tricuspid regurgitation. Small loculated left lateral pericardial effusion. Tamponade absent. CXR 09/17/24: No acute cardiopulmonary abnormalities identified. Mild cardiomegaly. Echo 04/29/22: Moderate concentric LVH, normal LV wall motion, LVEF 60-65%, trace MR, trace TR Medications Administered Current Inpatient Medications Acetaminophen (Acetaminophen 325 Mg Tab) 650 mg PO Q4H PRN PRN Reason: Pain or Fever Stop: 10/17/24 05:10 Apixaban (Apixaban 5 Mg Tablet) 5 mg PO BID GRAYSON Stop: 10/17/24 08:59 Last Admin: 09/17/24 07:37 Dose: 5 mg Cyclobenzaprine HCl (Cyclobenzaprine Hcl 10 Mg Tab) 10 mg PO Q8H PRN PRN Reason: muscle spasm Stop: 10/17/24 04:07 Dextrose (Dextrose 50% 50 Ml Syringe) 25 - 50 ml IV UD PRN; Protocol PRN Reason: Hypoglycemia Protocol Stop: 10/17/24 05:42 Fluoxetine HCl (Fluoxetine Hcl 20 Mg Cap) 20 mg PO DAILY GRAYSON Stop: 10/17/24 08:59 Last Admin: 09/17/24 07:37 Dose: 20 mg Glucagon (Glucagon For Inj 1 Mg Vial) 1 mg SQ UD PRN; Protocol PRN Reason: Hypoglycemia Protocol Stop: 10/17/24 05:42 Glucose (Glucose 40% Gel 15 Gm Tube) 15 - 30 gm PO UD PRN; Protocol PRN Reason: Hypoglycemia Protocol Stop: 10/17/24 05:42 Glucose (Glucose 10 Tab/Tube) 4 - 8 tab PO UD PRN; Protocol PRN Reason: Hypoglycemia Protocol Stop: 10/17/24 05:42 Potassium Chloride/Sodium Chloride (Normal Saline W/20 Meq Kcl) 20 meq in 1,000 mls @ 100 mls/hr IV .Q10H ONE Stop: 09/17/24 14:14 Last Admin: 09/17/24 05:11 Dose: 100 mls/hr Promethazine HCl (Phenergan) 6.25 mg in 50.25 mls @ 201 mls/hr IV Q6H PRN PRN Reason: Nausea And Vomiting Stop: 10/17/24 04:07 Insulin Aspart (Insulin Aspart Per Unit Charge) 0 units SC ACHS [facility] Stop: 10/17/24 05:44 Last Admin: 09/17/24 06:29 Dose: Not Given Lisinopril (Lisinopril 10 Mg Tab) 10 mg PO QAM GRAYSON Stop: 10/17/24 08:59 Last Admin: 09/17/24 07:37 Dose: 10 mg Lorazepam (Lorazepam 0.5 Mg Tab) 0.5 mg PO TID PRN PRN Reason: Anxiety Stop: 10/17/24 04:07 Miscellaneous (Carbohydrates For Hypoglycemia ) 15 - 30 gm PO UD PRN PRN Reason: Hypoglycemia Protocol Stop: 10/17/24 05:42 Morphine Sulfate (Morphine Sulfate 4 Mg/Ml 1 Ml Carp\\Vial) 4 mg IV Q4H PRN PRN Reason: Pain Stop: 10/01/24 04:07 Multivitamins (Multivitamin Tab) 1 tab PO QAM GRAYSON Stop: 10/17/24 08:59 Last Admin: 09/17/24 07:37 Dose: 1 tab Nitroglycerin (Nitroglycerin Sl 0.4 Mg/Tab Tab) 0.4 mg SL Q5M PRN PRN Reason: Chest Pain Stop: 10/17/24 04:31 Oxycodone HCl (Oxycodone Hcl Ir 5 Mg Tab (Immediate Release)) 5 mg PO Q4H PRN PRN Reason: Pain Stop: 10/01/24 04:07 Zolpidem Tartrate (Zolpidem Tartrate 5 Mg Tab) 10 mg PO HS PRN PRN Reason: Insomnia Stop: 10/17/24 04:07 Coding [place] [address] IN/OBS CONSULT LVL 5,80M Patient Type Established History Comprehensive Medical Decision Making High Complexity Diagnoses Paroxysmal atrial fibrillation with RVR I48.0 Primary hypertension I10 Hypertension type: primary hypertension Diabetes mellitus, type II E11.9 Diabetes mellitus complication status: with skin complications Sleep apnea, obstructive G47.33 Time Spent (min) 80 Comment 60 minutes were spend by Aris Pineda PA-C, [address] Hoffman (2) HTN (hypertension) Hypertension type: primary hypertension Qualified Code(s): I10 - Essential (primary) hypertension (3) Diabetes mellitus, type II Diabetes mellitus complication status: with skin complications
[2024-09-17] MEDS ORDERED: STAT IV Infusion **Titration per Protocol STA (08:54)
[2024-09-17] MEDS: METOPROLOL TARTRATE 25 MG TAB PO STA (09:13)
[2024-09-17] MEDS: METOPROLOL TARTRATE 25 MG TAB PO SCH (12:33)
--- NOTE | 2024-09-17 13:01 | Communication Note ---
Date of Service: September 17, 2024 Patient was seen and examined at bedside. 53 yo F w/ PMH of PAF on Eliquis, valvular heart disease (trace MR/TR, TTE 2022), hypertension, morbid obesity s/p gastric bypass, RYLIE (currently not on CPAP), DM2 on Ozempic, mood disorder presents w/ sudden onset chest tightness associated palpitations. Reports compliance with home medications. Denies sob/cough. She is being managed for the following: Paroxysmal atrial fibrillation with RVR: Patient is on Coreg and Eliquis at home.Patient noted to be in A-fib RVR at presentation. TSH WNL, CXR with no acute finding. Echo with EF of 65 to 70%, left atrium mildly dilated, LV wall motion normal, LV systolic function normal. Cardiology on board, patient is to continue Cardizem drip for now and started on metoprolol.N.p.o. midnight. Continue with home Eliquis. Demand ischemia: Troponin flat around 40. Patient with no chest pain. Likely in the setting of A-fib RVR. Continue telemonitoring. Other chronic medical conditions: Continue with/resume home meds as when able. valvular heart disease (trace MR/TR, TTE 2022) hypertension, stable morbid obesity status post gastric bypass RYLIE (currently not on CPAP) DM2 on Ozempic, well-controlled as of recent hemoglobin A1c 5.6 last year, a1c this admission 5.4 DVT prophylaxis. Eliquis Full code Text document was generated using Postcron voice recognition software. It may contain grammatical or spelling errors. Kindly contact undersigned for clarification of any documentation item in question. For detailed information on the patient, refer to today's H&P note.
--- NOTE | 2024-09-17 13:09 | Electrocardiogram Report ---
Test Reason : Blood Pressure : */* mmHG Vent. Rate : 131 BPM Atrial Rate : * BPM P-R Int : * ms QRS Dur : 90 ms QT Int : 310 ms P-R-T Axes : * 1 63 degrees QTcB Int : 457 ms Atrial fibrillation with rapid ventricular response with premature ventricular or aberrantly conducte d complexes Abnormal ECG When compared with ECG of 19-Jul-2023 10:06, Atrial fibrillation has replaced Sinus rhythm Vent. rate has increased by 67 bpm Confirmed by Mariano Haile ([id number]) on 09/17/2024 1:08:53 PM Referred By: REFERRED SELF Confirmed By: Mariano Haile
[2024-09-17] MEDS: ACETAMINOPHEN 325 MG TAB PO PRN (19:32)
[2024-09-18] MEDS ORDERED: Nursing to Pharmacy Communication SCH (00:30)
[2024-09-18] MEDS: INSULIN ASPART PER UNIT CHARGE SC SCH (06:14)
[2024-09-18 07:00] VITALS: BP 149/91; RESP 18; TEMP 97.7; O2SAT 95
[2024-09-18 07:06] LABS: Hematocrit (blood only) 34.1 % (37.0-47.0); Hemoglobin 11.7 g/dl (12.0-16.0); Immature Granulocytes # (auto) 0.01 K/uL (0.01-0.20); Immature Granulocytes % (auto) 0.2 %; Mean Corpuscular Hemoglobin 32.0 pg (25.0-34.0); Mean Corpuscular Volume 93.2 fL (80.0-100.0); Platelet Count 188 K/uL (130-400); RDW Standard Deviation 45.8 fL (36.4-46.3); Red Blood Count 3.66 M/uL (4.20-5.40); White Blood Count 4.87 K/ul (4.8-10.8)
[2024-09-18 07:25] LABS: Anion Gap 5.0 (3-11); Blood Urea Nitrogen 15.0 mg/dl (6-23); Calcium 8.6 mg/dl (8.6-10.3); Carbon Dioxide 23.0 mmol/L (21-32); Chloride 112.0 mmol/L (98-107); Creatinine Clr Calc Pharmacy 135.4 ml/min; Glucose 92.0 mg/dl (70-99(Fasting)); Magnesium 1.8 mg/dl (1.7-2.4); Potassium 4.2 mmol/L (3.5-5.1); Sodium 140.0 mmol/L (136-145)
--- NOTE | 2024-09-18 10:01 | Cardiology Progress Note ---
Date of Service September 18, 2024 Assessment & Plan (1) Paroxysmal atrial fibrillation with RVR: (2) HTN (hypertension): (3) Diabetes mellitus, type II: (4) Sleep apnea, obstructive: Plan Converted from AF to SR evening of 09/17/24 at 20:03. EKG this am at 5:08 reveals SR in the 70s. Normal EKG. DC IV diltazem. DC oral metprolol. Resume coreg, 12.5 mg x 1 now since she had metoprolol at 7:40 am, then coreg 25 mg BID to resume at home tonight. Continue Eliquis 5 mg BID. Mildly elvated troponin on presentation , felt to be related to high heart rates and has trended down. No symptoms suggestive of angina. Stable for discharge to home. Follow up with [facility] cardiology. Francisca Hoffman DO. Admission and Anticipated Discharge Date Admission Date: September 17, 2024 Subjective Patient seen in cardiology follow up. Feels well. Converted to sinus rhythm overnight on a diltiazem infusion which has since been stopped. Physical Exam Constitutional: + obese; no acute distress Eyes: PERRL, conjunctivae normal, anicteric sclerae Neck: normal visual inspection and trachea midline Respiratory: normal respiratory effort, lungs clear to auscultation Cardiovascular: Rate/Rhythm: regular rate Heart Sounds: no murmur Vessels: no JVD and no carotid bruit Extremities: no edema Gastrointestinal (Abdomen): normal bowel sounds, soft, nontender, no hepatosplenomegaly Musculoskeletal: Head/Neck/Chest: + head abnormal to inspection and normocephalic Skin: + wound (Right lower back hematoma) and + dry skin Neurologic: PERRL, EOMI, accommodation nl, no face palsy, no dysarthria Psychiatric: A+Ox3, euthymic affect Results & Data Vital Signs (Past 12 Hours) Vital Signs Temp Pulse Pulse Resp BP Pulse Ox O2 Del Method 09/18/24 08:00 64 09/18/24 06:59 36.5 C 70 18 149/91 H 95 Room Air 09/18/24 03:04 36.6 C 70 20 141/85 H 98 Room Air 09/17/24 22:48 36.5 C 64 20 130/80 97 Room Air PG Care Time/CCT Total # of Minutes Spent Total Time Spent with Patient: Total time spent is greater than 50% in coordination of care (as documented) at patient's floor/unit and/or counseling patient: Coding Level of Care Code 79883 SUB INP/OBS CARE 3/50MIN Diagnoses Paroxysmal atrial fibrillation with RVR I48.0 Primary hypertension I10 Hypertension type: primary hypertension Diabetes mellitus, type II E11.9 Diabetes mellitus complication status: with skin complications Sleep apnea, obstructive G47.33 (2) HTN (hypertension) Hypertension type: primary hypertension Qualified Code(s): I10 - Essential (primary) hypertension (3) Diabetes mellitus, type II Diabetes mellitus complication status: with skin complications
--- NOTE | 2024-09-18 11:49 | Discharge Summary ---
Date of Service September 18, 2024 Admission HPI Per Admitting Provider History obtained from patient and records. Medical history significant for PAF on Eliquis, valvular heart disease (trace MR/TR, TTE 2022), hypertension, morbid obesity status post gastric bypass, RYLIE (currently not on CPAP), DM2 on Ozempic, mood disorder. Last confinement 2023 for recurrent A-fib status post spontaneous conversion to NSR. Around 10 PM last night, patient had sudden onset chest tightness associated palpitations. Chest tightness going across her chest and extending to her neck. No SOB or cough symptoms. Compliant with home medications. Denies unusual stress. Thinks she may not have drank water as much as she should yesterday. Heart rate 150s. 2 IV Cardizem boluses administered at the ER. Chest tightness currently relieved. 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 Admission Exam Per Admitting Provider GENERAL: Comfortable, pleasant, morbidly obese, no respiratory distress SKIN: Normal color, warm HEENT: [place] palpebral conjunctivae, no ptosis, dry buccal mucosa NECK : Supple, short neck, no tenderness CHEST : Decreased breath sounds, no tenderness HEART : Irregular, tachycardic, no obvious murmurs ABDOMEN: Some distention, nontender EXTREMITIES : Chronic bilateral LE swelling, no LE tenderness, no other conspicuous deformities noted NEUROLOGIC : Coherent, no facial asymmetry, no other gross focality Principal Diagnosis Paroxysmal atrial fibrillation with RVR: Demand ischemia Discharge Exam GENERAL: Comfortable, pleasant, morbidly obese, no respiratory distress SKIN: Normal color, warm HEENT: [place] palpebral conjunctivae, no ptosis, moist buccal mucosa NECK : Supple, short neck, no tenderness CHEST : Decreased breath sounds, no tenderness HEART : regular, HR in 70s, no obvious murmurs ABDOMEN: Some distention, nontender EXTREMITIES : Chronic bilateral LE swelling, no LE tenderness, no other conspic uous deformities noted NEUROLOGIC : Coherent, no facial asymmetry, no other gross focality Discharge Data Allergies Allergy/AdvReac Type Severity Reaction Status Date / Time No Known Allergies Allergy Unverified 07/18/23 22:59 Consultations 09/17/24 03:34 ED Decision to Admit Stat 09/17/24 05:11 Consult Cardiology Routine 07/16/25 10:26 HIM [Consult Health Information Management] Routine Hospital Course (1) Paroxysmal atrial fibrillation with RVR: Plan 53 yo F w/ PMH of PAF on Eliquis, valvular heart disease (trace MR/TR, TTE 2022), hypertension, morbid obesity s/p gastric bypass, RYLIE (currently not on CPAP), DM2 on Ozempic, mood disorder presents w/ sudden onset chest tightness associated palpitations. Reports compliance with home medications. Denies sob/cough. She was managed for the following: Paroxysmal atrial fibrillation with RVR: Patient is on Coreg and Eliquis at home.Patient noted to be in A-fib RVR at presentation. TSH WNL, CXR with no acute finding. Echo with EF of 65 to 70%, left atrium mildly dilated, LV wall motion normal, LV systolic function normal. Converted to NSR evening of 09/17 d/w cardio, ok to dc, resume home meds from evening, pt made aware. Demand ischemia: Troponin flat around 40. Patient with no chest pain. Likely in the setting of A-fib RVR. pt stable/no chest pain. Other chronic medical conditions: Continue with/resume home meds as when able. valvular heart disease (trace MR/TR, TTE 2022) hypertension, stable morbid obesity status post gastric bypass RYLIE (currently not on CPAP) DM2 on Ozempic, well-controlled as of recent hemoglobin A1c 5.6 last year, a1c this admission 5.4 DVT prophylaxis. Eliquis Full code Text document was generated using [employer] voice recognition software. It may contain grammatical or spelling errors. Kindly contact undersigned for clarification of any documentation item in question. Patient is being discharged home with following instructions at the point of discharge: Follow-up with your primary care physician within a week time and likely you will need labs CBC/CMP/magnesium/phosphorus. You were evaluated for paroxysmal atrial fibrillation with rapid ventricular rate, cardiology evaluated you, you continue back on your home Coreg from today evening, continue with your Eliquis. Follow-up with cardiology in 1 to 2 weeks time upon discharge. Take your medications as prescribed. Please make sure that you are able to get your medications today by calling your pharmacy before you leave the hospital so that your treatment continuity is not broken. Home Health Attestation I certify that this patient is under my care and that I, or a physicians rn first assistant working with me, had a face to-face encounter that meets the home health [id number] encounter requirements with this patient. The encounter with the patient was in whole, or in part, for the following medical condition, which is the primary reason for home health care (list medical condition): I certify that, based on my findings, the following services are medically necessary home health services: My clinical findings support the need for the above services because: Further, I certify that my clinical findings support that this patient is homebound (i.e. absences from home require considerable and taxing effort and are for medical reasons or uatsdin services or infrequently or of short duration when for other reasons) because: Certification for Home Health Services: Based on the above findings, I certify that this patient is confined to the home and needs intermittent snf care, physical therapy and/or speech therapy or continues to need occupational therapy. The patient is under my care, and I have initiated the establishment of the plan of care. This patient will be followed by a physician who will periodically review the plan of care. Total Time Total Time Spent Total Time Spent (In Minutes): 35 Discharge Plan Discharge Items Patient Disposition: Home - Self-Care Reason For Visit: CP, AF Discharge Diagnosis: Paroxysmal atrial fibrillation with RVR: Demand ischemia Condition on Discharge: Serious Activity: Resume your previous activity Non-emergency contact: Primary Care Provider Call non-emergency contact if: you have any medication questions and your symptoms worsen Follow-up/Referrals: Mireille Aviles PA-C [Primary Care Provider] - 09/24/24 9:00 am Diet: Carb Consistent or DM2 and Heart Healthy Addtl Attending Provider Instructions: Follow-up with your primary care physician within a week time and likely you will need labs CBC/CMP/magnesium/phosphorus. You were evaluated for paroxysmal atrial fibrillation with rapid ventricular rate, cardiology evaluated you, you continue back on your home Coreg from today evening, continue with your Eliquis. Follow-up with cardiology in 1 to 2 weeks time upon discharge. Take your medications as prescribed. Please make sure that you are able to get your medications today by calling your pharmacy before you leave the hospital so that your treatment continuity is not broken. Pending Studies at Discharge: No Stand-Alone Forms: My [employer], Smoking Cessation Medications and DC Order Prescriptions: Continued multivitamin Tablet 1 tab PO QAM zolpidem 5 mg tablet 10 mg PO HS PRN (Reason: Insomnia) lisinopril 10 mg Tablet 10 mg PO QAM Qty: 30 1RF Eliquis 5 mg Tablet 5 mg PO BID Qty: 60 2RF carvedilol 25 mg tablet 25 mg PO BID Rx Instructions: take with food cyclobenzaprine 10 mg tablet 10 mg PO Q8H PRN (Reason: muscle spasm) Qty: 21 0RF Ozempic 1 mg/dose (4 mg/3 mL) pen injector 1 mg SUBCUT WK fluoxetine 20 mg capsule 20 mg PO DAILY Discharge Orders: Discharge Order (Routine); Ordered 09/18/24 Ordered By: Karol Ortez Admission Data Admit Date/Time: 09/17/24 04:07 Attending Provider: Karol Ortez Admit Provider: Wellington Carrasco Primary Care Provider: Mireille Aviles Other Providers: Wellington Carrasco; Rosa Mata; Yo Hoffman; Danny Sanchez; Jarrett Gutierrez; Darío Hunt; Tyler Weber; Padma Pineda; Nhi Pina; Bev Sullivan; Lazaro Levi Ashley M.; Naga Graham; Seth Ro; Mira Mai; Allie Whitt; Melinda Chavez; Yamel Magallanes; Ronaldo Esteban; Linnea Mcmillan; Keerthi Amador; Huang Reed
[2024-09-18 11:52] VITALS: PULSE 70
--- NOTE | 2024-09-18 14:50 | Electrocardiogram Report ---
Test Reason : Blood Pressure : */* mmHG Vent. Rate : 72 BPM Atrial Rate : 72 BPM P-R Int : 150 ms QRS Dur : 92 ms QT Int : 408 ms P-R-T Axes : 18 23 49 degrees QTcB Int : 446 ms Normal sinus rhythm Normal ECG When compared with ECG of 17-Sep-2024 00:43, Sinus rhythm has replaced Atrial fibrillation Vent. rate has decreased by 59 bpm Confirmed by Mariano Haile ([id number]) on 09/18/2024 2:49:26 PM Referred By: REFERRED SELF Confirmed By: Mariano Haile
== END 2024-09-18 13:16 | disposition home or self-care (01) ==
LOC: ED 00:32 → 2S 00:32